=== PATIENT | female | born 1940 | race Caucasian/White ===

== ENCOUNTER 2016-10-31 10:39 | Inpatient (IN) | payer MEDICARE, OTHER ==
[2016-10-31] MEDS ORDERED: ASPIRIN 81 MG TABLET, CHEWABLE PO ONE (10:51)
[2016-10-31] MEDS ORDERED: LEVOFLOXACIN 500 MG/D5W RTU 100 ML IV ONE (11:39)
[2016-10-31 12:14] LABS: ABSOLUTE EOSINOPHILS # (AUTO) 0.2 10^3/uL (0.0-0.6); ABSOLUTE LYMPHOCYTES (AUTO) 0.8 10^3/uL (0.5-4.7); ABSOLUTE MONOCYTES (AUTO) 0.7 10^3/uL (0.1-1.4); ABSOLUTE NEUT (AUTO) 4.4 10^3/uL (1.7-8.2); BASOPHILS % (AUTO) 0.5 % (0-2); EOSINOPHILS % (AUTO) 2.9 % (0-6); HEMATOCRIT 36.6 % (36.0-47.0); HEMOGLOBIN 11.9 g/dL (12.0-15.5); HGB HCT DIFFERENCE -0.9; LYMPHOCYTES % (AUTO) 13.3 % (13-45); MEAN CORPUSCULAR HEMOGLOBIN 29.9 pg (27.0-33.4); MEAN CORPUSCULAR HGB CONC 32.4 g/dL (32.0-36.0); MEAN CORPUSCULAR VOLUME 92 fl (80-97); MONOCYTES % (AUTO) 11.6 % (3-13); RED BLOOD COUNT 3.97 10^6/uL (3.72-5.28); RED CELL DISTRIBUTION WIDTH 17.1 % (11.5-14.0); SEGMENTED NEUTROPHILS % (AUTO) 71.7 % (42-78); WHITE BLOOD COUNT 6.2 10^3/uL (4.0-10.5)
[2016-10-31 12:21] LABS: VENOUS BLOOD BASE EXCESS 3.5 mmol/L; VENOUS BLOOD HCO3 33.9 mmol/L (20-32); VENOUS BLOOD PH 7.26 (7.30-7.42)
[2016-10-31 12:22] LABS: VENOUS BLOOD PCO2 76.7 mmHg (35-63)
[2016-10-31 12:32] LABS: ALANINE AMINOTRANSFERASE 30 U/L (9-52); ALBUMIN 4.2 g/dL (3.5-5.0); ALKALINE PHOSPHATASE 41 U/L (38-126); ANION GAP 10 (5-19); ASPARTATE AMINO TRANSFERASE 28 U/L (14-36); BILIRUBIN,DIRECT 0.3 mg/dL (0.0-0.4); BILIRUBIN,TOTAL 0.4 mg/dL (0.2-1.3); BLOOD UREA NITROGEN 52 mg/dL (7-20); CALCIUM 9.1 mg/dL (8.4-10.2); CARBON DIOXIDE 33 mmol/L (22-30); CHLORIDE 95 mmol/L (98-107); CREATINE KINASE 99 U/L (30-135); CREATININE RESULT 1.61 mg/dL (0.52-1.25); GLUCOSE 227 mg/dL (75-110); LIPASE 468.2 U/L (23-300); MAGNESIUM 1.6 mg/dL (1.6-2.3); POTASSIUM 5.5 mmol/L (3.6-5.0); SODIUM 138.2 mmol/L (137-145); TOTAL PROTEIN 7.1 g/dL (6.3-8.2)
[2016-10-31 12:43] LABS: CREATINE KINASE MB 1.8 ng/mL (<4.55); TROPONIN I 0.013 ng/mL
[2016-10-31 13:05] LABS: APPEARANCE,URINE CLEAR; BILIRUBIN,URINE NEGATIVE (NEGATIVE); GLUCOSE, URINE NEGATIVE (NEGATIVE); KETONES,URINE NEGATIVE (NEGATIVE); LEUKOCYTE ESTERASE,URINE NEGATIVE (NEGATIVE); NITRITE,URINE NEGATIVE (NEGATIVE); PROTEIN,URINE NEGATIVE (NEGATIVE); URINE SPECIFIC GRAVITY 1.005; UROBILINOGEN,URINE NEGATIVE mg/dL (<2.0)
--- NOTE | 2016-10-31 13:11 | ER Document Report ---
ED General - General Chief Complaint: Shortness Of Breath Stated Complaint: SHORT OF BREATH - HPI Patient complains to provider of: shortness of breath Notes: Patient is coming in for shortness of breath. Patient family states patient will confuse this morning morning baseline. Patient was to have a history of dementia. Patient family states was breath ongoing for a week was seen by PCP was given Lasix for possible fluid overload. Patient otherwise is a history of COPD. Upon EMS arrival patient was found to be hypoxic and on transport had end -tidal CO2 greater than 60. Patient a longer smokes family denies any fevers denies any chills states patient has had a cough for quite some time. Patient is alert able states she does not have any chest pain abdominal pain at this time. - Related Data Allergies/Adverse Reactions: codeine [Codeine] Allergy (Verified 02/28/14 09:25) ABD PAIN erythromycin base [Erythromycin Base] Allergy (Verified 02/28/14 09:25) UNKNOWN morphine [Morphine] Allergy (Verified 02/28/14 09:25) oxycodone [Oxycodone] Allergy (Verified 02/28/14 09:25) hydrocodone [Hydrocodone] Adverse Reaction (Verified 02/28/14 09:25) methadone [Methadone] Adverse Reaction (Verified 02/28/14 09:25) erythromycin Allergy (Uncoded 11/30/12 11:39) sick Past Medical History - Social History Smoking Status: Former Smoker Frequency of alcohol use: None Drug Abuse: None Family History: Reviewed & Not Pertinent - Past Medical History Cardiac Medical History: Reports: Hx Congestive Heart Failure, Hx Heart Attack - stress induced several years ago, Hx Hypercholesterolemia, Hx Hypertension Pulmonary Medical History: Reports: Hx COPD Denies: Hx Asthma, Hx Tuberculosis Neurological Medical History: Denies: Hx Cerebrovascular Accident, Hx Seizures Endocrine Medical History: Reports: Hx Diabetes Mellitus Type 1, Hx Diabetes Mellitus Type 2 GI Medical History: Reports: Hx Gastroesophageal Reflux Disease, Hx Hiatal Hernia. Denies: Hx Hepatitis, Hx Ulcer Musculoskeltal Medical History: Reports Hx Arthritis, Reports Hx Fibromyalgia, Reports Hx Musculoskeletal Deformity, Reports Hx Musculoskeletal Trauma - scoliosis Psychiatric Medical History: Reports: Hx Anxiety, Hx Dementia, Hx Depression Infectious Medical History: Denies: Hx Hepatitis Past Surgical History: Reports: Hx Cardiac Catheterization, Hx Cholecystectomy, Hx Hysterectomy, Hx Orthopedic Surgery - back sx. Denies: Hx Mastectomy, Hx Open Heart Surgery, Hx Pacemaker - Immunizations Hx Diphtheria, Pertussis, Tetanus Vaccination: Yes Hx Pneumococcal Vaccination: 04/04/10 Review of Systems - Review of Systems Constitutional: No symptoms reported EENT: No symptoms reported Cardiovascular: No symptoms reported Respiratory: Cough, Short of breath Gastrointestinal: No symptoms reported Genitourinary: No symptoms reported Female Genitourinary: No symptoms reported Musculoskeletal: No symptoms reported Skin: No symptoms reported Hematologic/Lymphatic: No symptoms reported Neurological/Psychological: No symptoms reported -: Yes All other systems reviewed and negative Physical Exam - Vital signs Vitals: Temp Pulse Resp BP Pulse Ox 97.9 F 82 19 123/68 96 10/31/16 10:52 10/31/16 10:52 10/31/16 10:52 10/31/16 10:52 10/31/16 10:52 Interpretation: Normal - General General appearance: Appears well, Alert - HEENT Head: Normocephalic, Atraumatic Eyes: Normal Pupils: PERRL - Respiratory Respiratory status: No respiratory distress Chest status: Nontender Breath sounds: Normal Chest palpation: Normal - Cardiovascular Rhythm: Regular Heart sounds: Normal auscultation Murmur: No - Abdominal Inspection: Normal Distension: No distension Bowel sounds: Normal Tenderness: Nontender Organomegaly: No organomegaly - Back Back: Normal, Nontender - Extremities General upper extremity: Normal inspection, Nontender, Normal color, Normal ROM , Normal temperature General lower extremity: Normal inspection, Nontender, Normal color, Normal ROM , Normal temperature, Normal weight bearing. No: Candy's sign - Neurological Neuro grossly intact: Yes [place] Coma Scale Eye Opening: Spontaneous Sharla Coma Scale Verbal: Oriented [place] Coma Scale Motor: Obeys Commands Sharla Coma Scale Total: 15 Speech: Normal Motor strength normal: LUE, RUE, LLE, RLE Sensory: Normal - Psychological Associated symptoms: Normal affect, Normal mood - Skin Skin Temperature: Warm Skin Moisture: Dry Skin Color: Normal Course - Re-evaluation Re-evalutation: 10/31/16 16:00 Patient's chest x-ray shows bibasilar infiltrates. Patient was started on Levaquin as the patient does not have any risk factors for hospital or healthcare acquired pneumonia. More likely community-acquired. Patient laboratory showed hypercapnia therefore patient was placed on BiPAP. Lab work also does show some renal insufficiency with elevation in potassium. Patient's case was referred to the hospitalist will admit patient for further evaluation. - Vital Signs Vital signs: Temp Pulse Resp BP Pulse Ox 98.1 F 82 18 126/51 H 95 10/31/16 14:01 10/31/16 10:52 10/31/16 14:01 10/31/16 14:01 10/31/16 14:01 - Laboratory Result Diagrams: 10/31/16 11:25 10/31/16 11:50 Laboratory results interpreted by me: 10/31/16 10/31/16 10/31/16 11:25 11:25 11:50 Hgb 11.9 L RDW 17.1 H VBG pH 7.26 L VBG pCO2 76.7 H* VBG HCO3 33.9 H Potassium 5.5 H Chloride 95 L Carbon Dioxide 33 H BUN 52 H Creatinine 1.61 H Est GFR ( Amer) 38 L Est GFR (Non-Af Amer) 31 L Glucose 227 H Lipase 468.2 H Critical Care Note - Critical Care Note Total time excluding time spent on procedures (mins): 35 Comments: Patient with hypoxia hypercapnia requiring management of BiPAP Discharge - Discharge Clinical Impression: bilateral basilar pneumonia, Renal insufficiency Respiratory failure with hypoxia and hypercapnia Qualifiers: Chronicity: acute Qualified Code(s): J96.01 - Acute respiratory failure with hypoxia Dementia Qualifiers: Dementia type: unspecified type Dementia behavioral disturbance: without behavioral disturbance Qualified Code(s): F03.90 - Unspecified dementia without behavioral disturbance Admitting Provider: Hospitalist - [facility] Admitted: [facility]
[2016-10-31 13:18] LABS: URINE BARBITURATES SCREEN NEGATIVE; URINE METHADONE SCREEN NEGATIVE; URINE OPIATES LOW NEGATIVE; URINE PHENCYCLIDINE SCREEN NEGATIVE
[2016-10-31] MEDS ORDERED: ONDANSETRON 4 MG TAB.RAPDIS PO PRN (14:03)
[2016-10-31] MEDS ORDERED: ACETAMINOPHEN 325 MG TABLET PO PRN (14:03)
[2016-10-31] MEDS ORDERED: ONDANSETRON HCL INJ/PF 4 MG/2 ML SDV IV PRN (14:03)
[2016-10-31] MEDS ORDERED: IPRATROPIUM/ALBUTEROL 0.5-2.5 MG/3 ML AMPUL NEB PRN (14:03)
[2016-10-31] MEDS ORDERED: DEXTROSE 50%-WATER 25 GM/50 ML DISP.SYRIN IV PRN ×2 (14:09)
[2016-10-31] MEDS ORDERED: DEXTROSE 40% GEL 15 GM TUBE PO PRN ×2 (14:09)
[2016-10-31] MEDS ORDERED: GLUCAGON,HUMAN RECOMB 1 MG INJ IM PRN (14:09)
--- NOTE | 2016-10-31 14:21 | PDOC H&P ---
History of Present Illness Admission Date/PCP: 10/31/16 13:42 PEREZ GALVAN MD Patient complains of: Shortness of breath History of Present Illness: LARISA DOWELL is a 76 year old female who has a history of congestive heart failure who was seen by her primary care doctor on Wednesday and her Lasix dose was increased because of shortness of breath and worsening lower extremity edema. Since that time the patient has had improvement in her swelling however has had worsening of her shortness of breath and now has developed a productive cough. The patient has difficulty giving any history given her dementia. Patient presented and was found to be in acute respiratory distress and required BiPAP placement. Chest x-ray shows her to have pneumonia bilaterally. Patient denies chest pain and does have a history of just heart failure. The patient has not had any chest pain. Past Medical History Cardiac Medical History: Reports: Congestive Heart Failure, Myocardial Infarction - stress induced several years ago, Hyperlipidema, Hypertension Pulmonary Medical History: Reports: Chronic Obstructive Pulmonary Disease (COPD) Denies: Asthma, Tuberculosis Neurological Medical History: Denies: Seizures Endocrine Medical History: Reports: Diabetes Mellitus Type 2, Hypothyroidism Malignancy Medical History: Reports: None GI Medical History: Reports: Gastroesophageal Reflux Disease, Hiatal Hernia Musculoskeltal Medical History: Reports: Arthritis, Fibromyalgia Skin Medical History: Reports: None Psychiatric Medical History: Reports: Dementia, Depression Hematology: Reports: Anemia - in past Denies: Sickle Cell Disease Infectious Medical History: Reports: None Past Surgical History Past Surgical History: Reports: Cardiac Catheterization, Cholecystectomy, Hysterectomy, Orthopedic Surgery - back sx Denies: Amputation, Mastectomy, Pacemaker Social History Information Source: Relative Lives with: Family Smoking Status: Former Smoker Frequency of Alcohol Use: None Hx Recreational Drug Use: No Drugs: None Hx Prescription Drug Abuse: No - Advance Directive Resuscitation Status: Full Code Family History Family History: Mother at a young age with diabetes. Father in his 60s. Health history is unknown. Parental Family History Reviewed: Yes Children Family History Reviewed: No Sibling(s) Family History Reviewed.: No Medication/Allergy Home Medications: Digoxin [Lanoxin 0.125 mg Tablet] 0.125 mg PO QAM 07/13/11 Folic Acid [Folvite 1 mg Tablet] 2 mg PO QAM 07/13/11 Nitroglycerin [Nitrostat 0.4 mg (1/150 Gr) Tabs 25/Bottle] 60 gm SL PRN PRN 03/16 Prednisone [Deltasone 1 mg Tablet] 3 mg PO DAILY 07/13/11 Duloxetine HCl [Cymbalta 30 mg Capsule.dr] 60 mg PO BID 11/19/11 Cholecalciferol (Vitamin D3) [Vitamin D3 5000 unit Tablet] 50,000 unit PO Q7D Donepezil HCl [Aricept 5 mg Tablet] 10 mg PO QHS 04/24/12 Amlodipine Besylate [Norvasc 10 mg Tablet] 10 mg PO DAILY 11/13/12 Isosorbide Mononitrate [Isosorbide Mononitrate ER] 30 mg PO QAM 11/13/12 Labetalol HCl [Trandate] 100 mg PO BID 11/13/12 Levothyroxine Sodium [Synthroid 0.15 mg Tablet] 150 mcg PO DAILY 11/13/12 Valsartan [Diovan 160 mg Tablet] 320 mg PO DAILY 11/13/12 Cyclosporine 0.05% Oph Emulsio [Restasis 0.05% Oph Emulsion Pf 0.4 ml] 1 drop BTH_EYE Q12H 11/30/12 Fluticasone/Salmeterol [Advair 250-50 Diskus 28 dose] 1 inh IH Q12H 11/30/12 Cyanocobalamin (Vitamin B-12) [Vitamin B-12] 1,000 mcg PO DAILY 02/28/14 Acetaminophen [Tylenol 325 mg Tablet] 650 mg PO Q4HP PRN #60 tablet 03/09/14 Atorvastatin Calcium [Lipitor 20 mg Tablet] 20 mg PO QHS #0 tablet 03/09/14 B.ani/L.aci/L.facundo/L.plan/L.edmond [Probiotic Formula Capsule] 1 cap PO BID #60 capsule 03/09/14 Cholestyramine/Aspartame [Questran Light 4 gm Packet] 4 gm PO TID #90 packet 11/15 Diphenoxylate HCl/Atrop Sulf [Lomotil 2.5 mg Tablet] 1 tab PO TIDP PRN #30 tablet 03/09/14 Gemfibrozil [Lopid 600 mg Tablet] 600 mg PO BID #60 tablet 03/09/14 Hydralazine HCl [Apresoline 50 mg Tablet] 50 mg PO Q8 #90 tablet 03/09/14 Insulin Glargine,Hum.rec.anlog [Lantus Insulin 100 Unit/mL] 20 unit SUBCUT DAILY #1 insuln.pen 03/09/14 Insulin Lispro [Humalog Insulin (Lispro) 100 unit/mL] 0 unit SUBCUT AC #0 unit 03/09/14 Nystatin [Mycostatin Topical Powder 15 gm] 1 applic TP TID #0 bottle 03/09/14 Ondansetron HCl [Zofran 4 mg Tablet] 1 tab PO Q6HP PRN #20 tablet 03/09/14 Potassium Chloride [Klor-Con 10 Meq Tablet.sa] 10 meq PO DAILY #30 tablet.sa 11/15 Sodium Bicarbonate [Sodium Bicarbonate 650 mg Tablet] 650 mg PO DAILY #30 tablet 03/09/14 Allergies/Adverse Reactions: codeine [Codeine] Allergy (Verified 02/28/14 09:25) ABD PAIN erythromycin base [Erythromycin Base] Allergy (Verified 02/28/14 09:25) UNKNOWN morphine [Morphine] Allergy (Verified 02/28/14 09:25) oxycodone [Oxycodone] Allergy (Verified 02/28/14 09:25) hydrocodone [Hydrocodone] Adverse Reaction (Verified 02/28/14 09:25) methadone [Methadone] Adverse Reaction (Verified 02/28/14 09:25) erythromycin Allergy (Uncoded 11/30/12 11:39) sick Review of Systems ROS unobtainable: Due to mental status Physical Exam Vital Signs: Temp Pulse Resp BP Pulse Ox 98.1 F 82 18 126/51 H 95 10/31/16 14:01 10/31/16 10:52 10/31/16 14:01 10/31/16 14:01 10/31/16 14:01 General appearance: PRESENT: mild distress Head exam: PRESENT: atraumatic, normocephalic Eye exam: PRESENT: conjunctiva pink, EOMI, PERRLA. ABSENT: scleral icterus Ear exam: PRESENT: normal external ear exam Mouth exam: PRESENT: moist, tongue midline Neck exam: ABSENT: carotid bruit, JVD, lymphadenopathy, thyromegaly Respiratory exam: PRESENT: decreased breath sounds - Decreased breath sounds in the bases.. ABSENT: rales, rhonchi, wheezes Cardiovascular exam: PRESENT: RRR. ABSENT: diastolic murmur, rubs, systolic murmur Pulses: PRESENT: normal dorsalis pedis pul Vascular exam: PRESENT: normal capillary refill GI/Abdominal exam: PRESENT: normal bowel sounds, soft. ABSENT: distended, guarding, mass, organolmegaly, rebound, tenderness Rectal exam: PRESENT: deferred Extremities exam: ABSENT: calf tenderness, clubbing, pedal edema Neurological exam: PRESENT: awake, oriented to person, oriented to place, CN II- XII grossly intact. ABSENT: oriented to time, oriented to situation, motor sensory deficit Psychiatric exam: PRESENT: flat affect Skin exam: PRESENT: dry, intact, warm. ABSENT: cyanosis, rash Results Impressions: Chest X-Ray 10/31/16 10:52 IMPRESSION: Bibasilar infiltrates/volume loss. Assessment & Plan - Diagnosis (1) Respiratory failure with hypoxia and hypercapnia Qualifiers: Chronicity: acute Qualified Code(s): J96.01 - Acute respiratory failure with hypoxia; J96.02 - Acute respiratory failure with hypercapnia Is this a current diagnosis for this admission?: YesPlan: The patient has a history of COPD and now has pneumonia. Patient has required BiPAP. We'll continue with the BiPAP and nebulizers. (2) Pneumonia Is this a current diagnosis for this admission?: YesPlan: Patient has community-acquired pneumonia most likely representing gram-positive cocci. We'll cover with Levaquin IV. (3) Coronary artery disease Is this a current diagnosis for this admission?: YesPlan: Denies any chest pain. (4) Hypertension Is this a current diagnosis for this admission?: YesPlan: We'll continue with her oral antihypertensives. (5) Diabetes mellitus Is this a current diagnosis for this admission?: YesPlan: Continue with Lantus and sliding scale insulin. (6) Hypothyroidism Is this a current diagnosis for this admission?: YesPlan: Continue with Synthroid. (7) COPD (chronic obstructive pulmonary disease) Is this a current diagnosis for this admission?: YesPlan: We'll continue BiPAP and nebulizers. (8) Congestive heart failure Is this a current diagnosis for this admission?: YesPlan: Do not have a recent echo however by the family's description sounds this is probably diastolic dysfunction. We'll hold her Lasix as she is dehydrated with acute renal failure currently. (9) Dementia Qualifiers: Dementia type: unspecified type Dementia behavioral disturbance: without behavioral disturbance Qualified Code(s): F03.90 - Unspecified dementia without behavioral disturbance Is this a current diagnosis for this admission?: YesPlan: We'll continue with Aricept. (10) Pancreatitis Is this a current diagnosis for this admission?: YesPlan: Patient has abnormal lipase but denies abdominal pain. (11) Renal insufficiency Is this a current diagnosis for this admission?: YesPlan: Patient has acute on chronic renal failure. We'll hold the Lasix and give IV fluids cautiously. - Time Time Spent: 50 to 70 Minutes - Inpatient Certification Medical Necessity: Need For IV Fluids, Need for IV Antibiotics - Plan Summary Plan Summary: We'll make a full admission as I anticipate this will require greater than a two midnight hospital stay because of her need for IV fluids, IV antibiotics and BiPAP.
[2016-10-31] MEDS ORDERED: ENOXAPARIN SODIUM INJ 30 MG/0.3 ML DISP.SYRIN SUBCUT ONE ×2 (15:00→20:45)
[2016-10-31 15:48] LABS: CREATINE KINASE MB 1.42 ng/mL (<4.55)
[2016-10-31 15:52] LABS: TROPONIN I < 0.012 ng/mL
[2016-10-31] MEDS ORDERED: ALBUTEROL SULFATE HFA (90 MCG/PUFF) 200 PUFF/8.5 GM MDI IH PRN (16:40)
[2016-10-31] MEDS ORDERED: TRAMADOL HCL 50 MG TABLET PO PRN (16:40)
[2016-10-31] MEDS ORDERED: LEFLUNOMIDE 10 MG PO SCH (18:00)
[2016-10-31] MEDS ORDERED: (PENDING PHARMACY ID) (Fenofibrate [Fenofibrate] 160 MG) PO SCH (18:00)
[2016-10-31] MEDS: LANSOPRAZOLE 30 MG TAB.RAP.DR PO SCH (20:29)
[2016-10-31] MEDS: POTASSIUM CHLORIDE 10 MEQ TABLET.SA PO SCH (20:29)
[2016-10-31] MEDS: DONEPEZIL HCL 5 MG TABLET PO SCH (20:29)
[2016-10-31] MEDS: CYANOCOBALAMIN (VITAMIN B-12) 1,000 MCG TABLET PO SCH (20:30)
[2016-10-31] MEDS: LOSARTAN POTASSIUM 50 MG TABLET PO SCH (20:32)
[2016-10-31] MEDS: FAMOTIDINE 20 MG TABLET PO SCH (21:16)
[2016-10-31] MEDS: PREGABALIN 75 MG CAPSULE PO SCH (21:16)
[2016-10-31] MEDS: ATORVASTATIN CALCIUM 20 MG TABLET PO SCH (21:17)
[2016-10-31] MEDS: MONTELUKAST SODIUM 10 MG TABLET PO SCH (21:17)
[2016-10-31] MEDS: DULOXETINE HCL 30 MG CAPSULE.DR PO SCH (21:17)
[2016-10-31] MEDS: MIRTAZAPINE 15 MG TABLET PO SCH (21:18)
[2016-10-31] MEDS: NORMAL SALINE 1000 ML 1,000 ML IV PRN (21:19)
[2016-10-31] MEDS ORDERED: FLUTICASONE/SALMETEROL DISKUS 100-50 MCG/DOSE IH ONE (21:24)
[2016-10-31 21:26] LABS: CREATINE KINASE MB 1.26 ng/mL (<4.55)
[2016-10-31 21:28] LABS: TROPONIN I < 0.012 ng/mL
[2016-10-31] MEDS: FLUTICASONE/SALMETEROL DISKUS 100-50 MCG/DOSE IH SCH (23:15)
[2016-11-01 03:27] LABS: HEMATOCRIT 38.2 % (36.0-47.0); HEMOGLOBIN 12.5 g/dL (12.0-15.5); HGB HCT DIFFERENCE -0.7; MEAN CORPUSCULAR HGB CONC 32.7 g/dL (32.0-36.0); MEAN CORPUSCULAR VOLUME 92 fl (80-97); RED BLOOD COUNT 4.17 10^6/uL (3.72-5.28); RED CELL DISTRIBUTION WIDTH 17.7 % (11.5-14.0); WHITE BLOOD COUNT 7.4 10^3/uL (4.0-10.5)
[2016-11-01 03:28] LABS: ANION GAP 11 (5-19); BLOOD UREA NITROGEN 47 mg/dL (7-20); CALCIUM 9.2 mg/dL (8.4-10.2); CARBON DIOXIDE 36 mmol/L (22-30); CHLORIDE 98 mmol/L (98-107); CREATINE KINASE 62 U/L (30-135); CREATININE RESULT 1.32 mg/dL (0.52-1.25); GLUCOSE 109 mg/dL (75-110); SODIUM 145.3 mmol/L (137-145)
[2016-11-01 03:59] LABS: CREATINE KINASE MB 0.93 ng/mL (<4.55)
[2016-11-01 04:19] LABS: TROPONIN I < 0.012 ng/mL
[2016-11-01 05:03] LABS: POTASSIUM 4.9 mmol/L (3.6-5.0)
[2016-11-01] MEDS: NORMAL SALINE 1000 ML 1,000 ML IV PRN ×2 (07:58→16:07)
[2016-11-01] MEDS: ENOXAPARIN SODIUM INJ 30 MG/0.3 ML DISP.SYRIN SUBCUT SCH (08:00)
[2016-11-01] MEDS ORDERED: ENOXAPARIN SODIUM INJ 40 MG/0.4 ML DISP.SYRIN SUBCUT SCH (08:00)
[2016-11-01] MEDS ORDERED: LEVOFLOXACIN 750 MG/D5W RTU 150 ML IV SCH (10:00)
--- NOTE | 2016-11-01 10:13 | EKG REPORT ---
SEVERITY:- ABNORMAL ECG - SINUS RHYTHM MULTIPLE ATRIAL PREMATURE COMPLEXES CONSIDER ANTERIOR INFARCT : Confirmed by: Ginger Santos 01-Nov-2016 10:12:45
[2016-11-01] MEDS: POTASSIUM CHLORIDE 10 MEQ TABLET.SA PO SCH ×2 (11:02→16:54)
[2016-11-01] MEDS: SODIUM BICARBONATE 650 MG TABLET PO SCH (11:02)
[2016-11-01] MEDS: LEVOTHYROXINE SODIUM 0.1 MG TABLET PO SCH (11:03)
[2016-11-01] MEDS: AMLODIPINE BESYLATE 10 MG TABLET PO SCH (11:03)
[2016-11-01] MEDS: CHOLECALCIFEROL (D3) 1,000 UNIT TABLET PO SCH (11:03)
[2016-11-01] MEDS: ISOSORBIDE MONONITRATE 30 MG TAB.ER.24H PO SCH (11:04)
[2016-11-01] MEDS: FAMOTIDINE 20 MG TABLET PO SCH ×2 (11:04→22:43)
[2016-11-01] MEDS: DULOXETINE HCL 30 MG CAPSULE.DR PO SCH ×2 (11:04→22:43)
[2016-11-01] MEDS: FOLIC ACID 1 MG TABLET PO SCH (11:05)
[2016-11-01] MEDS: PREGABALIN 75 MG CAPSULE PO SCH ×2 (11:05→22:42)
[2016-11-01] MEDS: FLUTICASONE NASAL SPRAY 50 MCG/SPRY 120 SPRAY/16 GM NASL SCH (11:06)
[2016-11-01] MEDS: FLUTICASONE/SALMETEROL DISKUS 100-50 MCG/DOSE IH SCH ×2 (11:06→22:46)
[2016-11-01] MEDS: INSULIN GLARGINE,HUM.REC.ANLOG 300 UNIT/3 ML INSULN.PEN SUBCUT SCH (11:30)
[2016-11-01] MEDS: PREDNISONE 1 MG TABLET PO SCH (11:30)
--- NOTE | 2016-11-01 11:47 | PDOC PROGRESS REPORT ---
Subjective Progress Note for:: 11/01/16 Subjective:: Patient is less confused today. Physical Exam Vital Signs: Temp Pulse Resp BP Pulse Ox 98.1 F 83 20 144/54 H 98 11/01/16 08:09 11/01/16 08:09 11/01/16 08:09 11/01/16 08:09 11/01/16 08:09 Intake & Output 10/31/16 11/01/16 11/02/16 06:59 06:59 06:59 Intake Total 1707 Output Total 300 Balance 1407 Weight 87.4 kg General appearance: PRESENT: no acute distress Eye exam: PRESENT: conjunctiva pink. ABSENT: scleral icterus Mouth exam: PRESENT: moist, tongue midline Neck exam: ABSENT: JVD Respiratory exam: PRESENT: rhonchi - Coarse rhonchi bilaterally.. ABSENT: rales , wheezes Cardiovascular exam: PRESENT: RRR. ABSENT: diastolic murmur, rubs, systolic murmur GI/Abdominal exam: PRESENT: normal bowel sounds, soft. ABSENT: distended, guarding, mass, organolmegaly, rebound, tenderness Extremities exam: ABSENT: calf tenderness, clubbing, pedal edema Neurological exam: PRESENT: alert, awake, oriented to person, oriented to place , CN II-XII grossly intact. ABSENT: oriented to time, oriented to situation, motor sensory deficit Psychiatric exam: PRESENT: flat affect Skin exam: PRESENT: dry, intact, warm. ABSENT: cyanosis, rash Results Laboratory Results: 11/01/16 02:55 11/01/16 02:55 11/01/16 11/01/16 02:55 02:55 WBC 7.4 RBC 4.17 Hgb 12.5 Hct 38.2 MCV 92 MCH 30.0 MCHC 32.7 RDW 17.7 H Plt Count 173 Sodium 145.3 H Potassium 4.9 Chloride 98 Carbon Dioxide 36 H Anion Gap 11 BUN 47 H Creatinine 1.32 H Est GFR ( Amer) 47 L Est GFR (Non-Af Amer) 39 L Glucose 109 Calcium 9.2 10/31/16 10/31/16 10/31/16 14:50 14:50 20:34 Creatine Kinase 83 70 CK-MB (CK-2) 1.42 Troponin I < 0.012 04/29/17 04/30/17 04/30/17 20:34 02:55 02:55 Creatine Kinase 62 CK-MB (CK-2) 1.26 0.93 Troponin I < 0.012 < 0.012 Impressions: Chest X-Ray 10/31/16 10:52 IMPRESSION: Bibasilar infiltrates/volume loss. Assessment & Plan - Diagnosis (1) Respiratory failure with hypoxia and hypercapnia Qualifiers: Chronicity: acute Qualified Code(s): J96.01 - Acute respiratory failure with hypoxia; J96.02 - Acute respiratory failure with hypercapnia Is this a current diagnosis for this admission?: YesPlan: The patient has a history of COPD and now has pneumonia. Patient has required BiPAP. She is currently stable off of BiPAP at this time. We'll continue with the BiPAP as needed and nebulizers. (2) Pneumonia Is this a current diagnosis for this admission?: YesPlan: Patient has community-acquired pneumonia most likely representing gram-positive cocci. We'll cover with Levaquin IV. (3) Coronary artery disease Is this a current diagnosis for this admission?: YesPlan: Denies any chest pain. (4) Hypertension Is this a current diagnosis for this admission?: YesPlan: We'll continue with her oral antihypertensives. (5) Diabetes mellitus Is this a current diagnosis for this admission?: YesPlan: Continue with Lantus and sliding scale insulin. (6) Hypothyroidism Is this a current diagnosis for this admission?: YesPlan: Continue with Synthroid. (7) COPD (chronic obstructive pulmonary disease) Is this a current diagnosis for this admission?: YesPlan: We'll continue BiPAP and nebulizers. (8) Congestive heart failure Is this a current diagnosis for this admission?: YesPlan: I Do not have a recent echo however by the family's description sounds this is probably diastolic dysfunction. We'll hold her Lasix as she is dehydrated with acute renal failure currently. (9) Dementia Qualifiers: Dementia type: unspecified type Dementia behavioral disturbance: without behavioral disturbance Qualified Code(s): F03.90 - Unspecified dementia without behavioral disturbance Is this a current diagnosis for this admission?: YesPlan: We'll continue with Aricept. (10) Pancreatitis Is this a current diagnosis for this admission?: YesPlan: Patient has abnormal lipase but denies abdominal pain. (11) Renal insufficiency Is this a current diagnosis for this admission?: YesPlan: Patient has acute on chronic renal failure. We'll hold the Lasix and give IV fluids cautiously. - Time Time Spent with patient: 25-34 minutes - Inpatient Certification Medical Necessity: Need For IV Fluids, Need for IV Antibiotics
[2016-11-01] MEDS: INSULIN LISPRO 100 UNIT/ML 3 ML VIAL SUBCUT PRN ×3 (11:51→22:46)
[2016-11-01] MEDS ORDERED: MEMANTINE HCL 7 MG PO SCH (12:00)
[2016-11-01] MEDS ORDERED: NAMENDA 7 MG PO ONE (16:00)
[2016-11-01] MEDS: LOSARTAN POTASSIUM 50 MG TABLET PO SCH (16:54)
[2016-11-01] MEDS: DONEPEZIL HCL 5 MG TABLET PO SCH (16:54)
[2016-11-01] MEDS: LANSOPRAZOLE 30 MG TAB.RAP.DR PO SCH (16:56)
[2016-11-01] MEDS: CYANOCOBALAMIN (VITAMIN B-12) 1,000 MCG TABLET PO SCH (16:56)
[2016-11-01] MEDS ORDERED: FENOFIBRATE NANOCRYSTALLIZED 145 MG TABLET PO SCH (18:00)
[2016-11-01] MEDS ORDERED: ARAVA PO SCH (18:00)
[2016-11-01] MEDS: MIRTAZAPINE 15 MG TABLET PO SCH (22:42)
[2016-11-01] MEDS: MONTELUKAST SODIUM 10 MG TABLET PO SCH (22:42)
[2016-11-01] MEDS: ATORVASTATIN CALCIUM 20 MG TABLET PO SCH (22:43)
[2016-11-02 06:16] LABS: ABSOLUTE EOSINOPHILS # (AUTO) 0.1 10^3/uL (0.0-0.6); ABSOLUTE LYMPHOCYTES (AUTO) 0.8 10^3/uL (0.5-4.7); ABSOLUTE MONOCYTES (AUTO) 0.4 10^3/uL (0.1-1.4); BASOPHILS % (AUTO) 0.7 % (0-2); EOSINOPHILS % (AUTO) 2.9 % (0-6); HEMATOCRIT 34.2 % (36.0-47.0); HEMOGLOBIN 11.1 g/dL (12.0-15.5); HGB HCT DIFFERENCE -0.9; LYMPHOCYTES % (AUTO) 19.4 % (13-45); MEAN CORPUSCULAR HGB CONC 32.5 g/dL (32.0-36.0); MEAN CORPUSCULAR VOLUME 92 fl (80-97); MONOCYTES % (AUTO) 9.3 % (3-13); RED BLOOD COUNT 3.71 10^6/uL (3.72-5.28); RED CELL DISTRIBUTION WIDTH 17.2 % (11.5-14.0); SEGMENTED NEUTROPHILS % (AUTO) 67.7 % (42-78); WHITE BLOOD COUNT 4.4 10^3/uL (4.0-10.5)
[2016-11-02 06:38] LABS: ANION GAP 8 (5-19); BLOOD UREA NITROGEN 32 mg/dL (7-20); CALCIUM 8.6 mg/dL (8.4-10.2); CARBON DIOXIDE 32 mmol/L (22-30); CHLORIDE 105 mmol/L (98-107); CREATININE RESULT 1.05 mg/dL (0.52-1.25); GLUCOSE 123 mg/dL (75-110); POTASSIUM 4.8 mmol/L (3.6-5.0); SODIUM 145.4 mmol/L (137-145)
[2016-11-02] MEDS: ENOXAPARIN SODIUM INJ 30 MG/0.3 ML DISP.SYRIN SUBCUT SCH (07:41)
[2016-11-02] MEDS: FLUTICASONE/SALMETEROL DISKUS 100-50 MCG/DOSE IH SCH (09:25)
[2016-11-02] MEDS: FLUTICASONE NASAL SPRAY 50 MCG/SPRY 120 SPRAY/16 GM NASL SCH (09:27)
[2016-11-02] MEDS: PREDNISONE 1 MG TABLET PO SCH (09:27)
[2016-11-02] MEDS: CHOLECALCIFEROL (D3) 1,000 UNIT TABLET PO SCH (09:29)
[2016-11-02] MEDS: SODIUM BICARBONATE 650 MG TABLET PO SCH (09:31)
[2016-11-02] MEDS: FAMOTIDINE 20 MG TABLET PO SCH (09:31)
[2016-11-02] MEDS: FOLIC ACID 1 MG TABLET PO SCH (09:31)
[2016-11-02] MEDS: AMLODIPINE BESYLATE 10 MG TABLET PO SCH (09:32)
[2016-11-02] MEDS: ISOSORBIDE MONONITRATE 30 MG TAB.ER.24H PO SCH (09:32)
[2016-11-02] MEDS: PREGABALIN 75 MG CAPSULE PO SCH (09:33)
[2016-11-02] MEDS: DULOXETINE HCL 30 MG CAPSULE.DR PO SCH (09:33)
[2016-11-02] MEDS: POTASSIUM CHLORIDE 10 MEQ TABLET.SA PO SCH (09:34)
[2016-11-02] MEDS: INSULIN GLARGINE,HUM.REC.ANLOG 300 UNIT/3 ML INSULN.PEN SUBCUT SCH (09:35)
[2016-11-02] MEDS ORDERED: LEVOFLOXACIN 750 MG/D5W RTU 750 MG/150 ML RTUPB IV SCH (10:00)
[2016-11-02] MEDS: LEVOTHYROXINE SODIUM 0.1 MG TABLET PO SCH (10:11)
[2016-11-02] MEDS ORDERED: NAMENDA 7 MG PO SCH (12:00)
[2016-11-02 13:19] VITALS: BP 136/52
--- NOTE | 2016-11-02 14:09 | PDOC DISCHARGE SUMMARY ---
General - Admit/Disc Date/PCP Admission Date/Primary Care Provider: 10/31/16 14:04 PEREZ GALVAN MD Discharge Date: 11/02/16 - Discharge Diagnosis (1) Respiratory failure with hypoxia and hypercapnia Is this a current diagnosis for this admission?: YesSummary: Secondary to pneumonia. (2) Pneumonia Is this a current diagnosis for this admission?: YesSummary: With negative cultures. Sent home with oral Levaquin. (3) Coronary artery disease Is this a current diagnosis for this admission?: Yes (4) Hypertension Is this a current diagnosis for this admission?: Yes (5) Diabetes mellitus Is this a current diagnosis for this admission?: Yes (6) Hypothyroidism Is this a current diagnosis for this admission?: Yes (7) COPD (chronic obstructive pulmonary disease) Is this a current diagnosis for this admission?: Yes (8) Congestive heart failure Is this a current diagnosis for this admission?: Yes (9) Dementia Is this a current diagnosis for this admission?: Yes (10) Pancreatitis Is this a current diagnosis for this admission?: YesSummary: Patient was asymptomatic but was found to have elevated lipase. (11) Renal insufficiency Is this a current diagnosis for this admission?: YesSummary: Patient presented with acute renal failure with creatinine of 1.6. Creatinine has returned to normal with IV fluids. - Additional Information Resuscitation Status: Full Code Discharge Diet: Cardiac, Diabetic Discharge Activity: Activity As Tolerated Home Medications: Albuterol Sulfate [Proair HFA Inhalation Aerosol 8.5 gm MDI] 1 puff IH Q6HP PRN 10/31/16 Amlodipine Besylate [Norvasc 10 mg Tablet] 10 mg PO DAILY 10/31/16 Atorvastatin Calcium [Lipitor 20 mg Tablet] 20 mg PO QHS 10/31/16 Cholecalciferol (Vitamin D3) [Vitamin D3 5000 unit Capsule] 5,000 unit PO DAILY 10/31/16 Cyanocobalamin (Vitamin B-12) [Vitamin B-12] 1,000 mcg PO QPM 10/31/16 Donepezil HCl [Aricept] 10 mg PO QPM 10/31/16 Duloxetine HCl [Cymbalta] 60 mg PO Q12 10/31/16 Fenofibrate 160 mg PO QPM 10/31/16 Fluticasone Propionate [Flonase Nasal Ihlen 50 Mcg/Ihlen 16 gm] 2 sprays NASL DAILY 10/31/16 Fluticasone/Salmeterol [Advair 100-50 Diskus 28 Dose] 1 inh IH Q12 10/31/16 Folic Acid [Folvite 1 mg Tablet] 2 mg PO DAILY 10/31/16 Furosemide [Lasix] 80 mg PO Q12 10/31/16 Insulin Glargine,Hum.rec.anlog [Lantus Solostar] 30 unit SQ DAILY 10/31/16 Insulin Glulisine [Apidra Insulin (Glulisine) 100 unit/mL] 0 unit SUBCUT .SLIDING SCALE 10/31/16 Irbesartan [Avapro] 300 mg PO QPM 10/31/16 Isosorbide Mononitrate [Imdur 30 mg Tablet.er] 30 mg PO DAILY 10/31/16 Leflunomide [Arava] 10 mg PO QPM 10/31/16 Levothyroxine Sodium [Synthroid 0.1 mg Tablet] 0.1 mg PO DAILY@1100 10/31/16 Memantine HCl [Namenda Xr] 7 mg PO NOON 10/31/16 Methotrexate Sodium [Methotrexate] 10 mg PO FR@1000 10/31/16 Mirtazapine [Remeron 15 mg Tablet] 30 mg PO QHS 10/31/16 Montelukast Sodium [Singulair 10 mg Tablet] 10 mg PO QHS 10/31/16 Omeprazole 40 mg PO QPM 10/31/16 Pioglitazone HCl [Actos 15 mg Tablet] 15 mg PO DAILY 10/31/16 Potassium Chloride [K-Tab ER] 20 meq PO BID 10/31/16 Prednisone [Deltasone 1 mg Tablet] 3 mg PO DAILY 10/31/16 Pregabalin [Lyrica] 150 mg PO Q12 10/31/16 Progesterone,Micronized [Progesterone] 100 mg PO QHS 10/31/16 Sodium Bicarbonate [Sodium Bicarbonate 650 mg Tablet] 650 mg PO DAILY 10/31/16 Tramadol HCl [Ultram 50 mg Tablet] 50 mg PO Q6HP PRN 10/31/16 Levofloxacin [Levaquin 750 mg Tablet] 750 mg PO DAILY #5 tablet 11/02/16 History of Present Illness History of Present Illness: LARISA DOWELL is a 76 year old female who has a history of congestive heart failure who was seen by her primary care doctor on Wednesday and her Lasix dose was increased because of shortness of breath and worsening lower extremity edema. Since that time the patient has had improvement in her swelling however has had worsening of her shortness of breath and now has developed a productive cough. The patient has difficulty giving any history given her dementia. Patient presented and was found to be in acute respiratory distress and required BiPAP placement. Chest x-ray shows her to have pneumonia bilaterally. Patient denies chest pain and does have a history of just heart failure. The patient has not had any chest pain. Hospital Course Hospital Course: 76-year-old female had worsening mental status and was found to have bilateral pneumonia. Patient was treated with IV Levaquin along with BiPAP initially. She also was noted to be dehydrated with acute renal failure. She was given IV antibiotics as well as IV fluids and she had improvement in her mental status. Patient was able to been doing well since then. She's taking oral well and her respiratory status is back to her baseline she is discharged home on a 5 day course of Levaquin. Her function has returned back to normal. The other medical problems were unchanged during this hospitalization. Physical Exam Vital Signs: Temp Pulse Resp BP Pulse Ox 97.9 F 64 16 136/52 H 100 11/02/16 11:41 11/02/16 11:41 11/02/16 11:41 11/02/16 11:41 11/02/16 11:41 Intake & Output 11/01/16 11/02/16 11/03/16 06:59 06:59 06:59 Intake Total 1707 4440 240 Output Total 300 100 Balance 1407 4340 240 Weight 87.4 kg 91.7 kg General appearance: PRESENT: no acute distress Eye exam: PRESENT: conjunctiva pink. ABSENT: scleral icterus Mouth exam: PRESENT: moist, tongue midline Neck exam: ABSENT: JVD Respiratory exam: PRESENT: clear to auscultation lolly. ABSENT: rales, rhonchi, wheezes Cardiovascular exam: PRESENT: RRR. ABSENT: diastolic murmur, rubs, systolic murmur GI/Abdominal exam: PRESENT: normal bowel sounds, soft. ABSENT: distended, guarding, mass, organolmegaly, rebound, tenderness Extremities exam: ABSENT: calf tenderness, clubbing, pedal edema Neurological exam: PRESENT: alert, awake, oriented to person, oriented to place , oriented to time, CN II-XII grossly intact. ABSENT: oriented to situation, motor sensory deficit Psychiatric exam: PRESENT: appropriate affect Skin exam: PRESENT: dry, intact, warm. ABSENT: cyanosis, rash Results Laboratory Results: 11/02/16 05:36 11/02/16 05:36 11/02/16 11/02/16 05:36 05:36 WBC 4.4 RBC 3.71 L Hgb 11.1 L Hct 34.2 L MCV 92 MCH 30.0 MCHC 32.5 RDW 17.2 H Plt Count 214 Seg Neutrophils % 67.7 Lymphocytes % 19.4 Monocytes % 9.3 Eosinophils % 2.9 Basophils % 0.7 Absolute Neutrophils 3.0 Absolute Lymphocytes 0.8 Absolute Monocytes 0.4 Absolute Eosinophils 0.1 Absolute Basophils 0.0 Sodium 145.4 H Potassium 4.8 Chloride 105 Carbon Dioxide 32 H Anion Gap 8 BUN 32 H Creatinine 1.05 Est GFR ( Amer) > 60 Est GFR (Non-Af Amer) 51 L Glucose 123 H Calcium 8.6 10/31/16 10/31/16 10/31/16 14:50 14:50 20:34 Creatine Kinase 83 70 CK-MB (CK-2) 1.42 Troponin I < 0.012 10/31/16 11/01/16 11/01/16 20:34 02:55 02:55 Creatine Kinase 62 CK-MB (CK-2) 1.26 0.93 Troponin I < 0.012 < 0.012 Impressions: Chest X-Ray 10/31/16 10:52 IMPRESSION: Bibasilar infiltrates/volume loss. Qualifiers PATEINT BEING DISCHARGED WITH ANY OF THE FOLLOWING DIAGNOSIS?: No Plan Discharge Plan: Patient is discharged home in stable condition. Follow primary care in 1-2 weeks. Time Spent: Greater than 30 Minutes
[2016-11-06] MEDS ORDERED: METHOTREXATE SODIUM 2.5 MG TABLET PO SCH (10:00)
== END 2016-11-02 15:19 | disposition home or self-care (01) | DRG 193 ==
LOC: ER 10:39 → UNDOADMIN 13:42 → EH 13:42 → 3W 17:38
PROVIDERS: ADMIT Internal Medicine; ATTEND Internal Medicine
DX: J18.9 Pneumonia, unspecified organism (principal); J96.01 Acute respiratory failure with hypoxia; J96.02 Acute respiratory failure with hypercapnia; K85.90 Acute pancreatitis without necrosis or infection, unspecified; J44.0 Chronic obstructive pulmonary disease with (acute) lower respiratory infection; N17.9 Acute kidney failure, unspecified; I13.0 Hypertensive heart and chronic kidney disease with heart failure and stage 1 through stage 4 chronic kidney disease, or unspecified chronic kidney disease; N18.9 Chronic kidney disease, unspecified; I50.9 Heart failure, unspecified; E78.5 Hyperlipidemia, unspecified; K21.9 Gastro-esophageal reflux disease without esophagitis; F03.90 Unspecified dementia, unspecified severity, without behavioral disturbance, psychotic disturbance, mood disturbance, and anxiety; I25.2 Old myocardial infarction; Z87.891 Personal history of nicotine dependence; Z79.4 Long term (current) use of insulin; Z79.899 Other long term (current) drug therapy
CPT/HCPCS: 36415; 71010; 80048; 80053; 80307; 81001; 82550; 82553; 82803; 82962; 83690; 83735; 83880; 84484; 85025; 85027; 87040; 93005; 93010; 96365; 99291; J1650; J1815; J1956; J3490; J7030; J7512

== ENCOUNTER → 2017-01-14 | Outpatient (CLI) | payer MEDICARE, OTHER ==
--- NOTE | 2017-01-15 09:27 | EEG PRO FEE REPORT ---
EEG INTERPRETATION PATIENT NAME: LARISA DOWELL ROOM#: ORDER#: [id number] DATE OF STUDY: 01/14/2017 : 1940 REFERRING MD: ROSLYN SALAS M.D. DIAGNOSIS: Amnesia, gait abnormalities REPORT The EEG is done with video and no seizure activity or abnormal movements are noted on the video. The background shows a lot of frontal eye fuel motion artifact, but the background is within normal limits for age which is 7-8 Hz mixed theta and alpha; medium amplitude. No focal slowing, amplitude asymmetry, or epileptiform discharges are seen. IMPRESSION Normal EEG with some excessive frontal motion artifact at times INTERPRETING PHYSICIAN: LAURE ANDERS M.D. /: MTEFFT TT: [id number] ID: [id number] /: [id number] TD: [id number] JOB: [id number] cc:Juan CROFT M.D. >
== END ==
LOC: NEURO 12:49
PROVIDERS: ATTEND Pediatrics
DX: R41.0 Disorientation, unspecified (principal); R26.89 Other abnormalities of gait and mobility; R41.3 Other amnesia
CPT/HCPCS: 95819

== ENCOUNTER 2017-10-23 17:33 | Emergency (ER) | payer MEDICARE, OTHER ==
--- NOTE | 2017-10-23 17:51 | ER Document Report ---
ED Medical Screen (RME) - General Mode of Arrival: Wheelchair Information source: Patient TRAVEL OUTSIDE OF THE [place] IN LAST 30 DAYS: No <TATIANA ALCARAZ - Last Filed: 10/23/17 17:43> <TORSTEN AGUAYO - Last Filed: 10/23/17 21:23> - General Chief Complaint: Altered Mental Status Stated Complaint: CONFUSION Time Seen by Provider: 10/23/17 17:42 Notes: 77 y.o female with PMHx of dementia presents to the ED with hallucinations with confusion. Relative at bedside states that she saw PCP on 10/20/17, who halved her BP dose and started on a new medication, Clonodine. Pt notes a cough and trouble breathing from time to time. Current sinus congestion is being treated with Z-pack and a nose spray. Relative states a hx of URI and dehydration causing her confusion. (TATIANA ALCARAZ) - Related Data Allergies/Adverse Reactions: codeine [Codeine] Allergy (Verified 10/23/17 17:50) ABD PAIN erythromycin base [Erythromycin Base] Allergy (Verified 10/23/17 17:50) UNKNOWN morphine [Morphine] Allergy (Verified 10/23/17 17:50) oxycodone [Oxycodone] Allergy (Verified 10/23/17 17:50) hydrocodone [Hydrocodone] Adverse Reaction (Verified 10/23/17 17:50) methadone [Methadone] Adverse Reaction (Verified 10/23/17 17:50) erythromycin Allergy (Uncoded 10/23/17 17:50) sick Past Medical History - General Information source: Patient, Relative - Social History Chew tobacco use (# tins/day): No Frequency of alcohol use: None Drug Abuse: None - Past Medical History Cardiac Medical History: Reports: Hx Congestive Heart Failure, Hx Heart Attack - stress induced several years ago, Hx Hypercholesterolemia, Hx Hypertension Pulmonary Medical History: Reports: Hx COPD Denies: Hx Asthma, Hx Tuberculosis Neurological Medical History: Denies: Hx Cerebrovascular Accident, Hx Seizures Endocrine Medical History: Reports: Hx Diabetes Mellitus Type 1, Hx Diabetes Mellitus Type 2, Hx Hypothyroidism GI Medical History: Reports: Hx Gastroesophageal Reflux Disease, Hx Hiatal Hernia. Denies: Hx Hepatitis, Hx Ulcer Musculoskeltal Medical History: Reports Hx Arthritis, Reports Hx Fibromyalgia, Reports Hx Musculoskeletal Deformity, Reports Hx Musculoskeletal Trauma - scoliosis Psychiatric Medical History: Reports: Hx Anxiety, Hx Dementia, Hx Depression Infectious Medical History: Denies: Hx Hepatitis Past Surgical History: Reports: Hx Cardiac Catheterization, Hx Cholecystectomy, Hx Hysterectomy, Hx Orthopedic Surgery - back sx. Denies: Hx Mastectomy, Hx Open Heart Surgery, Hx Pacemaker - Immunizations Hx Diphtheria, Pertussis, Tetanus Vaccination: Yes <TATIANA ALCARAZ - Last Filed: 10/23/17 17:43> Review of Systems - Review of Systems Constitutional: No symptoms reported EENT: Other - sinus congestion being treated Cardiovascular: No symptoms reported Respiratory: See HPI, Cough, Short of breath Gastrointestinal: No symptoms reported Genitourinary: No symptoms reported Female Genitourinary: No symptoms reported Musculoskeletal: No symptoms reported Skin: No symptoms reported Hematologic/Lymphatic: No symptoms reported Neurological/Psychological: See HPI, Confusion, Dementia, Hallucinations -: Yes All other systems reviewed and negative <TATIANA ALCARAZ - Last Filed: 10/23/17 17:43> Physical Exam <TATIANA ALCARAZ - Last Filed: 10/23/17 17:43> <TORSTEN AGUAYO - Last Filed: 10/23/17 21:23> - Vital signs Vitals: Temp Pulse Resp BP Pulse Ox 98.4 F 72 20 141/57 H 90 L 10/23/17 17:40 10/23/17 17:40 10/23/17 17:40 10/23/17 17:40 10/23/17 17:40 - Notes Notes: Physical Exam: General: Alert, oriented to person and place. HEENT: Normocephalic. Atraumatic. PERRLA. Extraocular movements intact. Subconjunctival hemorrhage RT eye. Neck: Supple. Respiratory: No respiratory distress. Crackles to LT lower lung. Heart: 1/6 systolic ejection murmur Abdominal: Normal Inspection. No distension. Extremities: Moves all four extremities. Neurological: Normal cognition. Normal speech. Oriented to person and place but no tot time, cannot give the year or the name of the president, avoids answering the question and gives excuses consistent with dementia. Psychological: Normal affect. Normal Mood. Skin: Warm. Dry. Normal color. (TATIANA ALCARAZ) Course - Laboratory Result Diagrams: 10/23/17 18:32 10/23/17 20:25 <TORSTEN AGUAYO - Last Filed: 10/23/17 21:23> - Vital Signs Vital signs: Temp Pulse Resp BP Pulse Ox 98.4 F 72 21 H 143/90 H 98 10/23/17 17:40 10/23/17 18:00 10/23/17 20:01 10/23/17 20:01 10/23/17 21:01 - Laboratory Laboratory results interpreted by me: 10/23/17 10/23/17 18:32 20:25 RBC 3.68 L Hgb 10.7 L Hct 32.6 L RDW 14.6 H Chloride 97 L Carbon Dioxide 37 H BUN 40 H Est GFR ( Amer) 51 L Est GFR (Non-Af Amer) 42 L Glucose 166 H Alkaline Phosphatase 35 L Doctor's Discharge <TATIANA ALCARAZ - Last Filed: 10/23/17 17:43> <TORSTEN AGUAYO - Last Filed: 10/23/17 21:23> - Discharge Clinical Impression: Medication adverse effect, Altered mental status, Essential hypertension Condition: Good Disposition: HOME, SELF-CARE Additional Instructions: Please discontinue the clonidine as well as the azithromycin. Please restart amlodipine 10 mg daily. Consider following up with your primary care doctor and requesting hydrochlorothiazide to manage your blood pressure in addition to the blood pressure medications that you already on. The remainder of your labs and chest x-ray are normal today. Please return to the emergency room immediately if you experience any concerning symptoms including high fevers, severe headache, chest pain, difficulty breathing, abdominal pain, slurred speech, numbness or weakness in your arms or legs, or any other symptom that concerns you. Referrals: PEREZ GALVAN MD [Primary Care Provider] - Follow up as needed Scribe Documentation - Scribe Written by Annemarie:: annemarie Mcelroy 10/23/17 [id number] acting as scribe for :: Alfonso <TATIANA ALCARAZ - Last Filed: 10/23/17 17:43>
[2017-10-23 18:40] LABS: ABSOLUTE BASOPHILS # (AUTO) 0.1 10^3/uL (0.0-0.2); ABSOLUTE EOSINOPHILS # (AUTO) 0.1 10^3/uL (0.0-0.6); ABSOLUTE LYMPHOCYTES (AUTO) 1.6 10^3/uL (0.5-4.7); ABSOLUTE MONOCYTES (AUTO) 0.8 10^3/uL (0.1-1.4); ABSOLUTE NEUT (AUTO) 4.3 10^3/uL (1.7-8.2); BASOPHILS % (AUTO) 1.2 % (0-2); EOSINOPHILS % (AUTO) 1.4 % (0-6); HEMATOCRIT 32.6 % (36.0-47.0); HEMOGLOBIN 10.7 g/dL (12.0-15.5); LYMPHOCYTES % (AUTO) 23.3 % (13-45); MEAN CORPUSCULAR HEMOGLOBIN 29.2 pg (27.0-33.4); MEAN CORPUSCULAR HGB CONC 32.9 g/dL (32.0-36.0); MEAN CORPUSCULAR VOLUME 89 fl (80-97); MONOCYTES % (AUTO) 11.5 % (3-13); PLATELET COUNT 324 10^3/uL (150-450); RED BLOOD COUNT 3.68 10^6/uL (3.72-5.28); RED CELL DISTRIBUTION WIDTH 14.6 % (11.5-14.0); SEGMENTED NEUTROPHILS % (AUTO) 62.6 % (42-78); TOTAL CELLS COUNTED % (AUTO) 100 %; WHITE BLOOD COUNT 6.8 10^3/uL (4.0-10.5)
[2017-10-23 18:59] LABS: APPEARANCE,URINE CLEAR; BILIRUBIN,URINE NEGATIVE (NEGATIVE); COLOR,URINE YELLOW; GLUCOSE, URINE NEGATIVE (NEGATIVE); KETONES,URINE NEGATIVE (NEGATIVE); LEUKOCYTE ESTERASE,URINE NEGATIVE (NEGATIVE); NITRITE,URINE NEGATIVE (NEGATIVE); PROTEIN,URINE NEGATIVE (NEGATIVE); URINE SPECIFIC GRAVITY 1.008; UROBILINOGEN,URINE NEGATIVE mg/dL (<2.0)
--- NOTE | 2017-10-23 19:00 | RADIOLOGY REPORT (SQ) ---
EXAM DESCRIPTION: CHEST 2 VIEWS COMPLETED DATE/TIME: 10/23/2017 6:45 pm REASON FOR STUDY: cough COMPARISON: 2013. NUMBER OF VIEWS: Two view. TECHNIQUE: Frontal and lateral radiographic views of the chest acquired. LIMITATIONS: None. FINDINGS: LUNGS AND PLEURA: Low lung volumes. No opacities, masses or pneumothorax. No pleural eff usion. MEDIASTINUM AND HILAR STRUCTURES: No masses. No contour abnormalities. HEART AND VASCULAR STRUCTURES: Stable cardiomegaly without overt failure. BONES: No acute findings. HARDWARE: None in the chest. OTHER: No other significant finding. IMPRESSION: Low lung volumes. Cardiomegaly. Fairly stable appearance of the chest. TECHNICAL DOCUMENTATION: JOB ID: [id number] [employer]- All Rights Reserved Reading location - IP/workstation name: [email or web address]
--- NOTE | 2017-10-23 20:49 | ER Document Report ---
ED General - General Chief Complaint: Altered Mental Status Stated Complaint: CONFUSION Time Seen by Provider: 10/23/17 17:42 Mode of Arrival: Wheelchair Notes: Patient is a 77-year-old female with past medical history of hypertension, chronic pain, and dementia who presents with family for increasing confusion over the last 3 days. Patient herself is quite demented, unable to provide meaningful history. The family notes that since being seen by her primary care doctor 3 days ago and having her blood pressure medication changed in which her dose of amlodipine was cut from 10 mg to 5 mg daily and being started on clonidine she has seemed increasingly sleepy during the day, restless at night and confused. They note that she is often muttering or talking to herself. They also note that she seems much more disoriented than normal. She has no history of such significant alteration in the past. She has not followed up with her primary doctor since beginning to have these symptoms. Family has not noted that he seems to improve or worsen her symptoms. No fever, vomiting, diarrhea, focal weakness, numbness, or complaints of headache or neck pain. History is otherwise limited secondary to the patient's dementia. TRAVEL OUTSIDE OF THE [place] IN LAST 30 DAYS: No - Related Data Allergies/Adverse Reactions: codeine [Codeine] Allergy (Verified 10/23/17 17:50) ABD PAIN erythromycin base [Erythromycin Base] Allergy (Verified 10/23/17 17:50) UNKNOWN morphine [Morphine] Allergy (Verified 10/23/17 17:50) oxycodone [Oxycodone] Allergy (Verified 10/23/17 17:50) hydrocodone [Hydrocodone] Adverse Reaction (Verified 10/23/17 17:50) methadone [Methadone] Adverse Reaction (Verified 10/23/17 17:50) erythromycin Allergy (Uncoded 10/23/17 17:50) sick Past Medical History - General Information source: Patient, Relative - Social History Smoking Status: Former Smoker Chew tobacco use (# tins/day): No Frequency of alcohol use: None Drug Abuse: None Lives with: Family Family History: Reviewed & Not Pertinent Patient has suicidal ideation: No Patient has homicidal ideation: No - Past Medical History Cardiac Medical History: Reports: Hx Congestive Heart Failure, Hx Heart Attack - stress induced several years ago, Hx Hypercholesterolemia, Hx Hypertension Pulmonary Medical History: Reports: Hx COPD Denies: Hx Asthma, Hx Tuberculosis Neurological Medical History: Denies: Hx Cerebrovascular Accident, Hx Seizures Endocrine Medical History: Reports: Hx Diabetes Mellitus Type 1, Hx Diabetes Mellitus Type 2, Hx Hypothyroidism Renal/ Medical History: Denies: Hx Peritoneal Dialysis GI Medical History: Reports: Hx Gastroesophageal Reflux Disease, Hx Hiatal Hernia. Denies: Hx Hepatitis, Hx Ulcer Musculoskeltal Medical History: Reports Hx Arthritis, Reports Hx Fibromyalgia, Reports Hx Musculoskeletal Deformity, Reports Hx Musculoskeletal Trauma - scoliosis Psychiatric Medical History: Reports: Hx Anxiety, Hx Dementia, Hx Depression Infectious Medical History: Denies: Hx Hepatitis Past Surgical History: Reports: Hx Cardiac Catheterization, Hx Cholecystectomy, Hx Hysterectomy, Hx Orthopedic Surgery - back sx. Denies: Hx Mastectomy, Hx Open Heart Surgery, Hx Pacemaker - Immunizations Hx Diphtheria, Pertussis, Tetanus Vaccination: Yes Hx Pneumococcal Vaccination: 04/04/10 Review of Systems - Review of Systems Notes: Constitutional: Negative for fever. HENT: Negative for sore throat. Eyes: Negative for visual changes. Cardiovascular: Negative for chest pain. Respiratory: Negative for shortness of breath. Gastrointestinal: Negative for abdominal pain, vomiting or diarrhea. Genitourinary: Negative for dysuria. Musculoskeletal: Negative for back pain. Skin: Negative for rash. Neurological: Positive for confusion 10 point ROS negative except as marked above and in HPI. Physical Exam - Vital signs Vitals: Temp Pulse Resp BP Pulse Ox 98.4 F 72 20 141/57 H 90 L 10/23/17 17:40 10/23/17 17:40 10/23/17 17:40 10/23/17 17:40 10/23/17 17:40 Interpretation: Normal Notes: PHYSICAL EXAMINATION: GENERAL: Well-appearing, well-nourished and in no acute distress. HEAD: Atraumatic, normocephalic. EYES: Pupils equal round and reactive to light, extraocular movements intact, sclera anicteric, conjunctiva are normal. ENT: nares patent, oropharynx clear without exudates. Moist mucous membranes. NECK: Normal range of motion, supple without lymphadenopathy LUNGS: Breath sounds clear to auscultation bilaterally and equal. No wheezes rales or rhonchi. HEART: Regular rate and rhythm without murmurs ABDOMEN: Soft, nontender, normoactive bowel sounds. No guarding, no rebound. No masses appreciated. EXTREMITIES: Normal range of motion, no pitting or edema. No cyanosis. NEUROLOGICAL: Face symmetric. Tongue protrudes midline. Extraocular motions intact. Pupils are 2 mm and equally reactive. Normal speech, normal gait. 5 out of 5 strength in both the distal and proximal upper and lower extremities bilaterally. Sensation is grossly intact throughout. Finger to nose testing normal. Pronator drift normal. PSYCH: Wakes easily but is quite sleepy. Oriented to person only. SKIN: Warm, Dry, normal turgor, no rashes or lesions noted. Course - Re-evaluation Re-evalutation: 10/23/17 20:47 Patient presents with her family with concerns of 3 days of progressively worsening confusion, restlessness at night and disorientation. On examination the patient is alert, oriented to person and place but not year or location. She does know that she is at hospital however. The patient has a history of dementia although family notes that this is much worse than her usual. Patient was started on clonidine 3 days ago and the family has noted the deterioration in her condition since that time. I suspect the clonidine is likely the cause of the patient's restlessness as well as her increased confusion as this is a known side effect of this medication particularly given in people who have dementia. I have asked the family to immediately discontinue this medication as well as azithromycin and increase the patient's amlodipine back to 10 mg. I have also asked him to follow-up with a primary care doctor to find an alternative agent such as hydrochlorothiazide to control her chronic essential hypertension. There is not appear to be any acute alternative etiology of the patient's worsening confusion as her labs including a urinalysis are unremarkable. She has no history of head trauma, no focal neurologic deficits to suggest an acute stroke or intracranial bleed. No indication for head imaging at this time. Patient actually has a history of having restlessness and some confusion on clonidine in the past per the family and I have encouraged them to remind the family doctor of this interaction that the patient has had in the past. At this time will discharge with return precautions and follow-up recommendations. Verbal discharge instructions given a the bedside and opportunity for questions given. Medication warnings reviewed. Patient is in agreement with this plan and has verbalized understanding of return precautions and the need for primary care follow-up in the next 24-72 hours. - Vital Signs Vital signs: Temp Pulse Resp BP Pulse Ox 98.6 F 66 18 154/77 H 91 L 10/23/17 21:25 10/23/17 21:25 10/23/17 21:25 10/23/17 21:25 10/23/17 21:25 - Laboratory Result Diagrams: 10/23/17 18:32 10/23/17 20:25 Laboratory results interpreted by me: 10/23/17 10/23/17 18:32 20:25 RBC 3.68 L Hgb 10.7 L Hct 32.6 L RDW 14.6 H Chloride 97 L Carbon Dioxide 37 H BUN 40 H Est GFR ( Amer) 51 L Est GFR (Non-Af Amer) 42 L Glucose 166 H Alkaline Phosphatase 35 L - Diagnostic Test Radiology reviewed: Image reviewed, Reports reviewed Radiology results interpreted by me: 10/23/17 20:49 Chest x-ray: No acute infiltrate or pneumothorax Discharge - Discharge Clinical Impression: Essential hypertension Medication adverse effect Qualifiers: Encounter type: initial encounter Qualified Code(s): T88.7XXA - Unspecified adverse effect of drug or medicament, initial encounter Altered mental status Qualifiers: Altered mental status type: disorientation Qualified Code(s): R41.0 - Disorientation, unspecified Condition: Good Disposition: HOME, SELF-CARE Additional Instructions: Please discontinue the clonidine as well as the azithromycin. Please restart amlodipine 10 mg daily. Consider following up with your primary care doctor and requesting hydrochlorothiazide to manage your blood pressure in addition to the blood pressure medications that you already on. The remainder of your labs and chest x-ray are normal today. Please return to the emergency room immediately if you experience any concerning symptoms including high fevers, severe headache, chest pain, difficulty breathing, abdominal pain, slurred speech, numbness or weakness in your arms or legs, or any other symptom that concerns you. Referrals: PEREZ GALVAN MD [Primary Care Provider] - Follow up as needed
[2017-10-23 20:59] LABS: ALANINE AMINOTRANSFERASE 23 U/L (9-52); ALBUMIN 3.9 g/dL (3.5-5.0); ALKALINE PHOSPHATASE 35 U/L (38-126); ANION GAP 7 (5-19); ASPARTATE AMINO TRANSFERASE 26 U/L (14-36); BILIRUBIN,DIRECT 0.3 mg/dL (0.0-0.4); BILIRUBIN,TOTAL 0.3 mg/dL (0.2-1.3); BLOOD UREA NITROGEN 40 mg/dL (7-20); CALCIUM 9.4 mg/dL (8.4-10.2); CARBON DIOXIDE 37 mmol/L (22-30); CHLORIDE 97 mmol/L (98-107); GLUCOSE 166 mg/dL (75-110); POTASSIUM 4.6 mmol/L (3.6-5.0); SODIUM 140.8 mmol/L (137-145); TOTAL PROTEIN 6.5 g/dL (6.3-8.2)
[2017-10-23 21:25] VITALS: BP 154/77
== END 2017-10-23 21:29 | disposition home or self-care (01) ==
LOC: ER 17:33
DX: I10 Essential (primary) hypertension (principal); R41.0 Disorientation, unspecified; G89.29 Other chronic pain; F03.90 Unspecified dementia, unspecified severity, without behavioral disturbance, psychotic disturbance, mood disturbance, and anxiety; Z79.899 Other long term (current) drug therapy; Z87.891 Personal history of nicotine dependence; E11.9 Type 2 diabetes mellitus without complications; J44.9 Chronic obstructive pulmonary disease, unspecified
CPT/HCPCS: 36415; 71046; 80053; 81001; 85025; 99285

== ENCOUNTER 2017-10-24 15:10 | Inpatient (IN) | payer MEDICARE, OTHER ==
--- NOTE | 2017-10-24 15:57 | ER Document Report ---
ED General <ROSALINE GREY - Last Filed: 10/24/17 19:10> - General Mode of Arrival: Ambulatory Information source: Patient, [facility] Records TRAVEL OUTSIDE OF THE [place] IN LAST 30 DAYS: No <BENJAMINALEX HERNANDEZ - Last Filed: 10/24/17 22:19> - General Chief Complaint: Altered Mental Status Stated Complaint: CONFUSED, SHORTNESS OF BREATH Time Seen by Provider: 10/24/17 15:29 Notes: Patient is a 77-year-old female with a history of hypertension, dementia and CHF presents to the emergency room accompanied by family complaining of increasing confusion over the last 4 days. Patient at bedside does not a provide a history. Family states the patient symptoms were onset after the patient had a change in her blood pressure medication in which her dose of Amlodipine was decreased to 5 mg (from 10 mg) and was started on Clonidine. Family states the patient is increasingly sleepy and confused which is not baseline to the patient. Patient also complains of a cough. Upon arrival to the patient's home, EMS found the patient to be febrile with a axillary tempreature of 102.7 and proceeded to give Tylenol. Patient was also at 87% on room air. Patient normally wears 2 L of oxygen at home. Patient was seen in the emergency department yesterday for similar symptoms and discharged with instructions to stop taking Clonidine and to resume taking Amlodipine 10mg. Patient was also instructed to discontinue taking a Zpack for which she was prescribed for sinus congestions symptoms. Patient's PCP is Dr. Vigil. (ALEX ALEXANDER) - Related Data Allergies/Adverse Reactions: codeine [Codeine] Allergy (Verified 10/23/17 17:50) ABD PAIN erythromycin base [Erythromycin Base] Allergy (Verified 10/23/17 17:50) UNKNOWN morphine [Morphine] Allergy (Verified 10/23/17 17:50) oxycodone [Oxycodone] Allergy (Verified 10/23/17 17:50) hydrocodone [Hydrocodone] Adverse Reaction (Verified 10/23/17 17:50) methadone [Methadone] Adverse Reaction (Verified 10/23/17 17:50) clonidine Allergy (Intermediate, Uncoded 10/24/17 20:20) Delirium erythromycin Allergy (Uncoded 10/23/17 17:50) sick Past Medical History - General Information source: Patient - Social History Smoking Status: Never Smoker Chew tobacco use (# tins/day): No Frequency of alcohol use: None Drug Abuse: None Family History: Reviewed & Not Pertinent Patient has suicidal ideation: No Patient has homicidal ideation: No - Past Medical History Cardiac Medical History: Reports: Hx Congestive Heart Failure, Hx Heart Attack - stress induced several years ago, Hx Hypercholesterolemia, Hx Hypertension Pulmonary Medical History: Reports: Hx COPD Endocrine Medical History: Reports: Hx Diabetes Mellitus Type 1, Hx Diabetes Mellitus Type 2, Hx Hypothyroidism GI Medical History: Reports: Hx Gastroesophageal Reflux Disease, Hx Hiatal Hernia Musculoskeltal Medical History: Reports Hx Arthritis, Reports Hx Fibromyalgia, Reports Hx Musculoskeletal Deformity, Reports Hx Musculoskeletal Trauma - scoliosis Psychiatric Medical History: Reports: Hx Anxiety, Hx Dementia, Hx Depression Past Surgical History: Reports: Hx Cardiac Catheterization, Hx Cholecystectomy, Hx Hysterectomy, Hx Orthopedic Surgery - back sx - Immunizations Hx Diphtheria, Pertussis, Tetanus Vaccination: Yes Hx Pneumococcal Vaccination: 04/04/10 <ALEX ALEXANDER - Last Filed: 10/24/17 22:19> Review of Systems - Review of Systems Constitutional: No symptoms reported EENT: No symptoms reported Cardiovascular: No symptoms reported Respiratory: See HPI, Cough Gastrointestinal: No symptoms reported Genitourinary: No symptoms reported Female Genitourinary: No symptoms reported Musculoskeletal: No symptoms reported Skin: No symptoms reported Hematologic/Lymphatic: No symptoms reported Neurological/Psychological: See HPI, Confusion -: Yes All other systems reviewed and negative <ALEX ALEXANDER - Last Filed: 10/24/17 22:19> Physical Exam - General General appearance: Alert In distress: None - HEENT Head: Normocephalic, Atraumatic - Respiratory Respiratory status: No respiratory distress Chest status: Nontender Breath sounds: Rhonchi Chest palpation: Normal - Cardiovascular Rhythm: Regular Heart sounds: Normal auscultation Murmur: No Friction rub: No Gallop: None auscultated - Abdominal Inspection: Obese Distension: No distension Bowel sounds: Normal Tenderness: Nontender Organomegaly: No organomegaly - Back Back: Normal - Extremities General upper extremity: Normal ROM General lower extremity: Edema - 1+ pitting edema bilaterally - Neurological Neuro grossly intact: Yes Cognition: Normal Orientation: AAOx4 Sharla Coma Scale Eye Opening: Spontaneous [place] Coma Scale Verbal: Oriented [place] Coma Scale Motor: Obeys Commands [place] Coma Scale Total: 15 - Psychological Associated symptoms: Normal affect, Normal mood - Skin Skin Temperature: Hot Skin Moisture: Dry Skin Color: Normal <BENJAMIN,TAMANSON - Last Filed: 10/24/17 22:19> - Vital signs Vitals: Resp 16 10/24/17 15:25 Course - Laboratory Result Diagrams: 10/24/17 16:20 10/24/17 16:20 - Diagnostic Test Radiology reviewed: Image reviewed, Reports reviewed - Chest x-ray shows a worsening bibasilar aeration, atelectasis versus infiltrate compared to last night. This is a portable film, last night was upright 2 view x-ray. - EKG Interpretation by Me EKG shows normal: Sinus rhythm, [place], Intervals, ST-T Waves. abnormal: QRS Complexes - Borderline R-wave progression in anterior leads Rate: Normal - 98 Rhythm: NSR When compared to previous EKG there are: No significant change - Consults Dr. Alicia Consulted provider: will come to ER <ROSALINE GREY - Last Filed: 10/24/17 19:10> - Laboratory Result Diagrams: 10/24/17 16:20 10/24/17 16:20 <ALEX ALEXANDER - Last Filed: 10/24/17 22:19> - Vital Signs Vital signs: Temp Pulse Resp BP Pulse Ox 98.9 F 74 18 118/61 96 10/24/17 18:31 10/24/17 18:00 10/24/17 20:01 10/24/17 20:01 10/24/17 22:01 - Laboratory Laboratory results interpreted by me: 10/24/17 10/24/17 10/24/17 16:20 16:20 16:20 RBC 3.71 L Hgb 11.0 L Hct 32.8 L RDW 14.8 H VBG HCO3 32.2 H Chloride 97 L Carbon Dioxide 36 H BUN 35 H Est GFR ( Amer) 50 L Est GFR (Non-Af Amer) 42 L Glucose 202 H POC Glucose Alkaline Phosphatase 30 L NT-Pro-B Natriuret Pep Urine Protein 10/24/17 10/24/17 10/24/17 16:20 17:50 17:59 RBC Hgb Hct RDW VBG HCO3 Chloride Carbon Dioxide BUN Est GFR ( Amer) Est GFR (Non-Af Amer) Glucose POC Glucose 175 H Alkaline Phosphatase NT-Pro-B Natriuret Pep 736 H Urine Protein 100 H Critical Care Note - Critical Care Note Total time excluding time spent on procedures (mins): 35 <ROSALINE GREY - Last Filed: 10/24/17 19:10> Discharge - Discharge Admitting Provider: Hospitalist Unit Admitted: Telemetry <ROSALINE GREY - Last Filed: 10/24/17 19:10> <ALEX ALEXANDER - Last Filed: 10/24/17 22:19> - Discharge Clinical Impression: Hypoxemia Fever Qualifiers: Fever type: unspecified Qualified Code(s): R50.9 - Fever, unspecified Hypotension Qualifiers: Hypotension type: unspecified hypotension type Qualified Code(s): I95.9 - Hypotension, unspecified Pneumonia Qualifiers: Pneumonia type: due to unspecified organism Laterality: bilateral Lung location : lower lobe of lung Qualified Code(s): J18.1 - Lobar pneumonia, unspecified organism Condition: Good Disposition: ADMITTED INPATIENT Scribe Attestation: 10/24/17 17:06 I personally performed the services described in the documentation, reviewed and edited the documentation which was dictated to the scribe in my presence, and it accurately records my words and actions. (ROSALINE GREY) Scribe Documentation - Scribe Written by Scribe:: Hugo Daigle, 10/24/2017 16:11 acting as scribe for :: Robson <ALEX ALEXANDER - Last Filed: 10/24/17 22:19>
--- NOTE | 2017-10-24 16:04 | RADIOLOGY REPORT (SQ) ---
EXAM DESCRIPTION: CHEST SINGLE VIEW COMPLETED DATE/TIME: 10/24/2017 3:56 pm REASON FOR STUDY: bed 10 sepsis protocol COMPARISON: 10/23/2017. FINDINGS: Single-view portable AP upright chest image. Persistent low lung volumes. Slightly worsening basilar subsegmental atelectasis/ infiltrates when c ompared to yesterday. No pneumothorax. IMPRESSION: Slightly worsening basilar aeration compared to yesterday. TECHNICAL DOCUMENTATION: JOB ID: [id number] Reading location - IP/workstation name: [email or web address]
[2017-10-24] MEDS ORDERED: CEFTRIAXONE 1 GM/D5W RTU 1 GM/50 ML RTUPB IV ONE (16:25)
[2017-10-24] MEDS ORDERED: NORMAL SALINE 1000 ML 200 ML IV ONE (16:26)
[2017-10-24 16:44] LABS: ABSOLUTE EOSINOPHILS # (AUTO) 0.1 10^3/uL (0.0-0.6); ABSOLUTE LYMPHOCYTES (AUTO) 1.3 10^3/uL (0.5-4.7); ABSOLUTE MONOCYTES (AUTO) 1.1 10^3/uL (0.1-1.4); ABSOLUTE NEUT (AUTO) 7.1 10^3/uL (1.7-8.2); BASOPHILS % (AUTO) 0.2 % (0-2); HEMATOCRIT 32.8 % (36.0-47.0); LYMPHOCYTES % (AUTO) 13.3 % (13-45); MEAN CORPUSCULAR HEMOGLOBIN 29.6 pg (27.0-33.4); MEAN CORPUSCULAR HGB CONC 33.4 g/dL (32.0-36.0); MEAN CORPUSCULAR VOLUME 89 fl (80-97); MONOCYTES % (AUTO) 11.6 % (3-13); PLATELET COUNT 310 10^3/uL (150-450); RED BLOOD COUNT 3.71 10^6/uL (3.72-5.28); RED CELL DISTRIBUTION WIDTH 14.8 % (11.5-14.0); SEGMENTED NEUTROPHILS % (AUTO) 73.9 % (42-78); TOTAL CELLS COUNTED % (AUTO) 100 %; WHITE BLOOD COUNT 9.6 10^3/uL (4.0-10.5)
[2017-10-24 16:46] LABS: VENOUS BLOOD BASE EXCESS 5.8 mmol/L; VENOUS BLOOD HCO3 32.2 mmol/L (20-32); VENOUS BLOOD PCO2 52.4 mmHg (35-63); VENOUS BLOOD PH 7.41 (7.30-7.42)
[2017-10-24 16:50] LABS: INTERNATIONAL RATION (INR) 0.94
[2017-10-24 16:59] LABS: ALANINE AMINOTRANSFERASE 20 U/L (9-52); ALBUMIN 3.7 g/dL (3.5-5.0); ALKALINE PHOSPHATASE 30 U/L (38-126); ANION GAP 8 (5-19); ASPARTATE AMINO TRANSFERASE 27 U/L (14-36); BILIRUBIN,DIRECT 0.3 mg/dL (0.0-0.4); BILIRUBIN,TOTAL 0.3 mg/dL (0.2-1.3); BLOOD UREA NITROGEN 35 mg/dL (7-20); CALCIUM 9.3 mg/dL (8.4-10.2); CARBON DIOXIDE 36 mmol/L (22-30); CHLORIDE 97 mmol/L (98-107); GLUCOSE 202 mg/dL (75-110); POTASSIUM 4.1 mmol/L (3.6-5.0); SODIUM 140.5 mmol/L (137-145); TOTAL PROTEIN 6.5 g/dL (6.3-8.2)
[2017-10-24] MEDS ORDERED: CEFTRIAXONE INJ 1000 MG VIAL IV ONE (17:01)
[2017-10-24] MEDS ORDERED: IPRATROPIUM/ALBUTEROL 0.5-2.5 MG/3 ML AMPUL NEB ONE (17:06)
--- NOTE | 2017-10-24 17:17 | EKG REPORT ---
SEVERITY:- BORDERLINE ECG - SINUS TACHYCARDIA VENTRICULAR PREMATURE COMPLEX BORDERLINE R WAVE PROGRESSION, ANTERIOR LEADS : Confirmed by: Ginger Santos 24-Oct-2017 17:16:35
[2017-10-24 17:24] LABS: CREATINE KINASE 68 U/L (30-135)
[2017-10-24 18:14] LABS: APPEARANCE,URINE CLEAR; BILIRUBIN,URINE NEGATIVE (NEGATIVE); COLOR,URINE YELLOW; GLUCOSE, URINE NEGATIVE (NEGATIVE); KETONES,URINE NEGATIVE (NEGATIVE); LEUKOCYTE ESTERASE,URINE NEGATIVE (NEGATIVE); NITRITE,URINE NEGATIVE (NEGATIVE); PROTEIN,URINE 100 mg/dL (NEGATIVE); UROBILINOGEN,URINE NEGATIVE mg/dL (<2.0)
[2017-10-24] MEDS ORDERED: PROMETHAZINE HCL INJ 25 MG/1 ML VIAL IV PRN (19:17)
[2017-10-24] MEDS ORDERED: ALBUTEROL SULFATE 0.083% NEB 2.5 MG/3 ML AMPUL NEB PRN (19:17)
[2017-10-24] MEDS ORDERED: DEXTROSE 40% GEL 15 GM TUBE PO PRN ×2 (19:29)
[2017-10-24] MEDS ORDERED: DEXTROSE 50%-WATER 25 GM/50 ML DISP.SYRIN IV PRN ×2 (19:29)
[2017-10-24] MEDS ORDERED: GLUCAGON,HUMAN RECOMB 1 MG INJ IM PRN (19:29)
[2017-10-24] MEDS ORDERED: VANCOMYCIN HCL 0 MG in DEXTROSE 5%-WATER 250 ML IV NR (19:30)
[2017-10-24] MEDS ORDERED: PIPERACILLIN SODIUM/TAZOBACTAM 3.375 GM in NORMAL SALINE 100 ML IV ONE (19:45)
[2017-10-24] MEDS: PIPERACILLIN/TAZOBACTAM 3.375 GM VIAL IV PRN (19:53)
--- NOTE | 2017-10-24 21:12 | PDOC H&P ---
History of Present Illness Admission Date/PCP: PEREZ GALVAN MD Patient complains of: Altered mental status for the last 2-3 days. Fever up to 102.7 today. History of Present Illness: LARISA DOWELL is a 77 year old female history of dementia of the Alzheimer' s type, Rheumatoid arthritis, CAD/WA/CHF, COPD (on 2 L home oxygen at night) and type 2 diabetes mellitus was admitted with above-mentioned complaints. Most of the history was obtained from family members at bedside and the ED physician/notes. The patient apparently presented to the ED yesterday with the same complaint of increased confusion but she was afebrile at that time. Her symptoms were attributed to Clonidine which was started by her PCP on 10/20/2017 and she apparently had problems with it in the past. She was told to discontinue it and she was discharged home after she had an unremarkable workup. The patient currently seems to be able to understand and follow simple commands. There was no report of any loss of consciousness or dizziness. On further questioning, the family was reporting increased confusion since the patient has been having increased visual hallucinations. According to her , her "confusion" seemed to improve last night since she did not take clonidine and she slept better. Her family brought her back today because she was febrile. Around 2 PM, EMS reported that her temperature was 102.7 upon arrival and her oxygen saturation was 87% on room air. She was given Tylenol and placed on 2 L home oxygen, her blood glucose was not recorded per ED note. The patient denied any chest pain or worsening shortness of breath but she complained of having chills and cough for the last 2-3 days. She also sounded more rhonchorous per her . She is unable to bring up any sputum but she feels congested. There was no report of any sick contact. She apparently was started on Zithromax when she saw her PCP on 10/20/2017 for acute sinusitis (she finished 4 out of 5 days). Of note, erythromycin is listed on her allergy list (it makes her sick). She was advised to stop Zithromax yesterday when she came to the ED. The patient denied any abdominal pain, diarrhea constipation or any urinary symptoms. She is sometimes incontinent of urine. She ambulates using a walker. In the ED, her temperature was 100.9, heart rate 100, respiratory rate 16 (up to 24), blood pressure 139/74 with oxygen saturation of 93% on 2 L nasal cannula. Her WBC was 9.6 and her hemoglobin was 11.0. Her lactic acid was 1.5. Her initial troponin was 0.015 with proBNP of 736. Her blood glucose was 202. She received 1 g Rocephin 1, 1 DuoNeb treatment x1 and 1 L of normal saline x1. Past Medical History Medical History: Other - According ot the patient and family and based on previous records. Cardiac Medical History: Reports: Congestive Heart Failure, Myocardial Infarction - stress induced several years ago, Hyperlipidema, Hypertension Pulmonary Medical History: Reports: Chronic Obstructive Pulmonary Disease (COPD ) - 2 L home oxygen at night. Denies: Asthma, Tuberculosis Neurological Medical History: Denies: Seizures Endocrine Medical History: Reports: Diabetes Mellitus Type 2, Hypothyroidism GI Medical History: Reports: Gastroesophageal Reflux Disease, Hiatal Hernia Denies: Hepatitis Musculoskeltal Medical History: Reports: Arthritis - rheumatoid., Fibromyalgia, Other - peripheral neuropathy. Psychiatric Medical History: Reports: Dementia, Depression Hematology: Reports: Anemia - in past Denies: Sickle Cell Disease Past Surgical History Past Surgical History: Reports: Cardiac Catheterization, Cholecystectomy, Hysterectomy, Orthopedic Surgery - back sx. Denies: Amputation, Mastectomy, Pacemaker Social History Smoking Status: Former Smoker Cigarettes Packs Per Day: 0 - She used to smoke 1 pack a day for 10-15 years. She quit this 30 years ago. Frequency of Alcohol Use: None Hx Recreational Drug Use: No Drugs: None Hx Prescription Drug Abuse: No - Advance Directive Resuscitation Status: Full Code Family History Parental Family History Reviewed: Yes - Mother: diabetes. Children Family History Reviewed: No Sibling(s) Family History Reviewed.: Yes Medication/Allergy Home Medications: Albuterol Sulfate [Proair HFA Inhalation Aerosol 8.5 gm MDI] 1 puff IH Q6HP PRN 10/31/16 Amlodipine Besylate [Norvasc 10 mg Tablet] 10 mg PO DAILY 10/31/16 Atorvastatin Calcium [Lipitor 20 mg Tablet] 20 mg PO QHS 10/31/16 Cholecalciferol (Vitamin D3) [Vitamin D3 5000 unit Capsule] 5,000 unit PO DAILY 10/31/16 Cyanocobalamin (Vitamin B-12) [Vitamin B-12] 1,000 mcg PO QPM 10/31/16 Donepezil HCl [Aricept] 10 mg PO QPM 10/31/16 Duloxetine HCl [Cymbalta] 60 mg PO Q12 10/31/16 Fenofibrate 160 mg PO QPM 10/31/16 Fluticasone Propionate [Flonase Nasal [place] 50 Mcg/[place] 16 gm] 2 sprays NASL DAILY 10/31/16 Fluticasone/Salmeterol [Advair 100-50 Diskus 28 Dose] 1 inh IH Q12 10/31/16 Folic Acid [Folvite 1 mg Tablet] 2 mg PO DAILY 10/31/16 Furosemide [Lasix] 80 mg PO Q12 10/31/16 Insulin Glargine,Hum.rec.anlog [Lantus Solostar] 30 unit SQ DAILY 10/31/16 Insulin Glulisine [Apidra Insulin (Glulisine) 100 unit/mL] 0 unit SUBCUT .SLIDING SCALE 10/31/16 Irbesartan [Avapro] 300 mg PO QPM 10/31/16 Isosorbide Mononitrate [Imdur 30 mg Tablet.er] 30 mg PO DAILY 10/31/16 Leflunomide [Arava] 10 mg PO QPM 10/31/16 Levothyroxine Sodium [Synthroid 0.1 mg Tablet] 0.1 mg PO DAILY@1100 10/31/16 Memantine HCl [Namenda Xr] 7 mg PO NOON 10/31/16 Methotrexate Sodium [Methotrexate] 10 mg PO FR@1000 10/31/16 Mirtazapine [Remeron 15 mg Tablet] 30 mg PO QHS 10/31/16 Montelukast Sodium [Singulair 10 mg Tablet] 10 mg PO QHS 10/31/16 Omeprazole 40 mg PO QPM 10/31/16 Pioglitazone HCl [Actos 15 mg Tablet] 15 mg PO DAILY 10/31/16 Potassium Chloride [K-Tab ER] 20 meq PO BID 10/31/16 Prednisone [Deltasone 1 mg Tablet] 3 mg PO DAILY 10/31/16 Pregabalin [Lyrica] 150 mg PO Q12 10/31/16 Progesterone, Micronized [Progesterone] 100 mg PO QHS 10/31/16 Sodium Bicarbonate [Sodium Bicarbonate 650 mg Tablet] 650 mg PO DAILY 10/31/16 Tramadol HCl [Ultram 50 mg Tablet] 50 mg PO Q6HP PRN 10/31/16 Levofloxacin [Levaquin 750 mg Tablet] 750 mg PO DAILY #5 tablet 11/02/16 Allergies/Adverse Reactions: codeine [Codeine] Allergy (Verified 10/23/17 17:50) ABD PAIN erythromycin base [Erythromycin Base] Allergy (Verified 10/23/17 17:50) UNKNOWN morphine [Morphine] Allergy (Verified 10/23/17 17:50) oxycodone [Oxycodone] Allergy (Verified 10/23/17 17:50) hydrocodone [Hydrocodone] Adverse Reaction (Verified 10/23/17 17:50) methadone [Methadone] Adverse Reaction (Verified 10/23/17 17:50) clonidine Allergy (Intermediate, Uncoded 10/24/17 20:20) Delirium erythromycin Allergy (Uncoded 10/23/17 17:50) sick Review of Systems ROS unobtainable: Other - Unable to obtain an accurate review of system given the patient's mental status. Physical Exam Vital Signs: Temp Pulse Resp BP Pulse Ox 98.9 F 74 35 H 108/54 L 95 10/24/17 18:31 10/24/17 18:00 10/24/17 18:00 10/24/17 18:00 10/24/17 18:00 General appearance: PRESENT: no acute distress, obese, well-developed, well- nourished Head exam: PRESENT: atraumatic, normocephalic Eye exam: PRESENT: PERRLA Mouth exam: PRESENT: moist, neck supple Neck exam: PRESENT: full ROM. ABSENT: JVD Respiratory exam: PRESENT: decreased breath sounds, rhonchi. ABSENT: rales, wheezes Cardiovascular exam: PRESENT: RRR, +S1, +S2 Pulses: PRESENT: normal dorsalis pedis pul GI/Abdominal exam: PRESENT: normal bowel sounds, soft. ABSENT: distended, rebound, tenderness Rectal exam: PRESENT: deferred Extremities exam: PRESENT: pedal edema - left leg chronically (+2). Musculoskeletal exam: PRESENT: other - Able to move all 4 extremities. Neurological exam: PRESENT: oriented to person, oriented to place, CN II-XII grossly intact - except CNVIII., motor sensory deficit - 4/5 throughout. Chronic peripheral neuropathy bilateral feet intermittently. Left sciatica. No Babinski or clonus. Gait was not assessed., other - sleepy but arousable.. ABSENT: oriented to time, oriented to situation Skin exam: PRESENT: intact, warm. ABSENT: erythema, rash Results Laboratory Results: 10/24/17 16:20 10/24/17 16:20 10/24/17 10/24/17 10/24/17 16:20 16:20 16:20 WBC 9.6 RBC 3.71 L Hgb 11.0 L Hct 32.8 L MCV 89 MCH 29.6 MCHC 33.4 RDW 14.8 H Plt Count 310 Seg Neutrophils % 73.9 Lymphocytes % 13.3 Monocytes % 11.6 Eosinophils % 1.0 Basophils % 0.2 Absolute Neutrophils 7.1 Absolute Lymphocytes 1.3 Absolute Monocytes 1.1 Absolute Eosinophils 0.1 Absolute Basophils 0.0 VBG pH VBG pCO2 VBG HCO3 VBG Base Excess Sodium 140.5 Potassium 4.1 Chloride 97 L Carbon Dioxide 36 H Anion Gap 8 BUN 35 H Creatinine 1.25 Est GFR ( Amer) 50 L Est GFR (Non-Af Amer) 42 L Glucose 202 H Lactic Acid 1.5 Calcium 9.3 Magnesium Total Bilirubin 0.3 AST 27 ALT 20 Alkaline Phosphatase 30 L Total Protein 6.5 Albumin 3.7 Urine Color Urine Appearance Urine pH Ur Specific [place] Urine Protein Urine Glucose (UA) Urine Ketones Urine Blood Urine Nitrite Ur Leukocyte Esterase Urine WBC (Auto) 10/24/17 10/24/17 10/24/17 16:20 16:20 17:59 WBC RBC Hgb Hct MCV MCH MCHC RDW Plt Count Seg Neutrophils % Lymphocytes % Monocytes % Eosinophils % Basophils % Absolute Neutrophils Absolute Lymphocytes Absolute Monocytes Absolute Eosinophils Absolute Basophils VBG pH 7.41 VBG pCO2 52.4 VBG HCO3 32.2 H VBG Base Excess 5.8 Sodium Potassium Chloride Carbon Dioxide Anion Gap BUN Creatinine Est GFR ( Amer) Est GFR (Non-Af Amer) Glucose Lactic Acid Calcium Magnesium 1.6 Total Bilirubin AST ALT Alkaline Phosphatase Total Protein Albumin Urine Color YELLOW Urine Appearance CLEAR Urine pH 5.0 Ur Specific [place] 1.010 Urine Protein 100 H Urine Glucose (UA) NEGATIVE Urine Ketones NEGATIVE Urine Blood NEGATIVE Urine Nitrite NEGATIVE Ur Leukocyte Esterase NEGATIVE Urine WBC (Auto) 0 10/24/17 10/24/17 10/24/17 16:20 16:20 16:20 Creatine Kinase 68 Troponin I 0.015 NT-Pro-B Natriuret Pep 736 H EKG Comments: Twelve-lead EKG: Sinus rhythm, ventricular rate 100, axis +60, QTC prolongation , poor R-wave propagation, first-degree AV block, no acute changes. To a previous twelve-lead EKG done on 10/31/2016, sinus rhythm, ventricular rate 70, [place] 0, APCs, no acute changes. Impressions: Chest X-Ray 10/24/17 15:17 IMPRESSION: Slightly worsening basilar aeration compared to yesterday. Assessment & Plan - Diagnosis (1) Acute encephalopathy Is this a current diagnosis for this admission?: Yes Plan: Secondary to delirium in addition to dementia. She was having visual hallucinations secondary to possibly infection, metabolic and and/or medications. Will check head CT scan, TSH and B12. Will avoid medications that can cause confusion. Further management as detailed below. (2) Sepsis Is this a current diagnosis for this admission?: Yes Plan: Given fever and tachycardia in the setting of possible pneumonia. Chest x-ray and UA reviewed. Her lactic acid was 1.5. Will start a broad coverage antibiotics with vancomycin and Zosyn given immunocompromised state and check a CAT scan angiogram of the chest. Will follow-up blood and urine cultures and repeat lactic acid. (3) Acute and chronic respiratory failure with hypoxia Is this a current diagnosis for this admission?: Yes Plan: Given tachypnea and oxygen saturation of 87% on room air per EMS requiring 2 L oxygen by nasal cannula, secondary to COPD exacerbation and/or pneumonia. ABG amd CXR reviewed. We will follow-up CAT scan angiogram of the chest and start scheduled duonebs, IV Solu-Medrol and monitor. T (4) Essential hypertension Is this a current diagnosis for this admission?: Yes Plan: currently controlled. According to her family, the patient BP medications were changed on 10/20/2017. Her Norvasc was decreased from 10 to 5 mg daily and clonidine was added since she has been hypertensive in the last few months. We will continue to monitor and adjust her blood pressure medications as indicated. (5) Type 2 diabetes mellitus Qualifiers: Diabetes mellitus halfway insulin use: with terminal makeup operator use Diabetes mellitus complication status: with unspecified complications Qualified Code(s) : E11.8 - Type 2 diabetes mellitus with unspecified complications; Z79.4 - dedicated intermodal truck driver (current) use of insulin; Z79.4 - dedicated intermodal truck driver (current) use of insulin; Z79.4 - MCC (current) use of insulin; Z79.4 - MCC (current) use of insulin Is this a current diagnosis for this admission?: Yes Plan: We will resume her 30 units Lantus every morning and add humolog sliding scale. We will hold Actos for now and adjust her insulin dose while on steroids. (6) Rheumatoid arthritis Is this a current diagnosis for this admission?: No Plan: She is on oral methotrexate 10 mg q. Wednesday, Lefunamide 10 mg QPM and prednisone 3 mg daily (all held now). - Time Time Spent: Greater than 70 Minutes - Inpatient Certification Based on my medical assessment, after consideration of the patient's comorbidities, presenting symptoms, or acuity I expect that the services needed warrant INPATIENT care.: Yes I certify that my determination is in accordance with my understanding of Medicare's requirements for reasonable and necessary INPATIENT services [42 CFR 412.3e].: Yes
[2017-10-24] MEDS ORDERED: VANCOMYCIN HCL INJ 1000 MG VIAL IV PRN (21:36)
[2017-10-24] MEDS ORDERED: VANCOMYCIN HCL 1,000 MG in DEXTROSE 5%-WATER 250 ML IV ONE (22:00)
[2017-10-24] MEDS ORDERED: FLUTICASONE/SALMETEROL DISKUS 100-50 MCG/DOSE IH SCH (22:00)
[2017-10-24] MEDS: METHYLPREDNISOLONE INJ 40 MG/1 ML SDV IV SCH (22:56)
[2017-10-24] MEDS: HEPARIN SOD (PORCINE) 5,000 UNIT/ML 1 ML SYRINGE SUBCUT SCH (22:58)
--- NOTE | 2017-10-24 23:23 | RADIOLOGY REPORT (SQ) ---
EXAM DESCRIPTION: CT HEAD WITHOUT COMPLETED DATE/TIME: 10/24/2017 10:12 pm REASON FOR STUDY: confusion COMPARISON: 02/28/2014 TECHNIQUE: Axial images acquired through the brain without intravenous contrast. Images reviewed wi th bone, brain and subdural windows. Images stored on PACS. All CT scanners at this facility use dose modulation, iterative reconstruction, and/or weight based d osing when appropriate to reduce radiation dose to as low as reasonably achievable (ALARA). [facility]: Dose Right [facility]: CareDose [facility]: Dose Right [facility]: Teradose 4D [facility]: [employer] RADIATION DOSE: CT Rad equipment meets quality standard of care and radiation dose reduction techniq ues were employed. CTDIvol: 53.2 mGy. DLP: 991 mGy-cm. mGy. LIMITATIONS: None. FINDINGS: VENTRICLES: Age-appropriate. CEREBRUM: No masses. No hemorrhage. No midline shift. Areas of low density in the white matter mos t likely due to chronic micro-vascular ischemic change. No evidence for acute infarction. CEREBELLUM: No masses. No hemorrhage. No alteration of density. No evidence for acute infarction. EXTRAAXIAL SPACES: Mild age-related involutional change. No fluid collections. No masses. ORBITS AND GLOBE: No intra- or extraconal masses. Normal contour of globe without masses. CALVARIUM: No fracture. PARANASAL SINUSES: Small right maxillary sinus air-fluid level. Mild mucosal thickening in the ethmo id and left maxillary sinus. SOFT TISSUES: No mass or hematoma. OTHER: No other significant finding. IMPRESSION: No acute intracranial findings. Sinusitis. EVIDENCE OF ACUTE STROKE: No TECHNICAL DOCUMENTATION: JOB ID: [id number] [id number] Quality ID # [id number]: Final reports with documentation of one or more dose reduction techniques (e.g., Au tomated exposure control, adjustment of the mA and/or kV according to patient size, use of iterative reconstruction technique) 2010 [employer]- All Rights Reserved Reading location - IP/workstation name: [email or web address]
[2017-10-24] MEDS: MONTELUKAST SODIUM 10 MG TABLET PO SCH (23:56)
--- NOTE | 2017-10-24 23:57 | RADIOLOGY REPORT (SQ) ---
EXAM DESCRIPTION: CTA CHEST COMPLETED DATE/TIME: 10/24/2017 10:12 pm REASON FOR STUDY: Fever/hypoxia COMPARISON: None. TECHNIQUE: CT scan of the chest performed using helical scanning technique with dynamic intravenous contrast injection. Images reviewed with lung, soft tissue and bone windows. Reconstructed coronal and sagittal MPR images reviewed. Additional 3 dimensional post-processing performed to develop Maximal Intensity Projection images (HI P). All images stored on PACS. All CT scanners at this facility use dose modulation, iterative reconstruction, and/or weight based d osing when appropriate to reduce radiation dose to as low as reasonably achievable (ALARA). [facility]: Dose Right [facility]: CareDose [facility]: Dose Right [facility]: Teradose 4D [facility]: CatchFree CONTRAST TYPE AND DOSE: contrast/concentration: Isovue 370.00 mg/ml; Total Contrast Delivered: 78.0 ml; Total Saline Delivered: 110.0 ml Contrast bolus optimized for the pulmonary arteries. Not diagnostic for the aorta. RENAL FUNCTION: GFR > 60. RADIATION DOSE: CT Rad equipment meets quality standard of care and radiation dose reduction techniq ues were employed. CTDIvol: 29.8 - 33.1 mGy. DLP: 1218 mGy-cm. . LIMITATIONS: None. FINDINGS: LUNGS AND PLEURA: Patchy consolidation in the lateral aspect of the left upper and lower l obes. Trace left pleural effusion. Mild basilar subsegmental atelectasis in the right medial lower lobe. No pneumothorax. AORTA AND GREAT VESSELS: No aneurysm. Contrast bolus not optimized for the aorta. HEART: No pericardial effusion. Moderate coronary artery calcifications. PULMONARY ARTERIES: No emboli visualized in the main pulmonary arteries or the segmental branches. HILAR AND MEDIASTINAL STRUCTURES: No identified masses or abnormal nodes. HARDWARE: None in the chest. UPPER ABDOMEN: No significant findings. Limited exam. THYROID AND OTHER SOFT TISSUES: No masses. No adenopathy. BONES: No acute finding. 3D MIPS: Confirm above findings. OTHER: No other significant finding. IMPRESSION: Patchy consolidation in the lateral aspect of the left upper and lower lobes. Trace lef t pleural effusion.. NO PULMONARY EMBOLI. COMMENT: Quality ID # [id number]: Final reports with documentation of one or more dose reduction techniques (e.g., Automated exposure control, adjustment of the mA and/or kV according to patient size, use of iterative reconstruction technique) TECHNICAL DOCUMENTATION: JOB ID: [id number] [id number] 2010 [employer] [place]- All Rights Reserved Reading location - IP/workstation name: [facility]
[2017-10-25] MEDS ORDERED: PIPERACILLIN/TAZOBACTAM 3.375 GM VIAL IV ONE (00:48)
[2017-10-25] MEDS: IPRATROPIUM/ALBUTEROL 0.5-2.5 MG/3 ML AMPUL NEB SCH ×4 (02:10→20:05)
[2017-10-25] MEDS: HEPARIN SOD (PORCINE) 5,000 UNIT/ML 1 ML SYRINGE SUBCUT SCH ×3 (05:17→22:40)
[2017-10-25] MEDS: PIPERACILLIN/TAZOBACTAM 3.375 GM VIAL IV PRN (05:17)
[2017-10-25] MEDS: LEVOTHYROXINE SODIUM 0.1 MG TABLET PO SCH (05:17)
[2017-10-25] MEDS: METHYLPREDNISOLONE INJ 40 MG/1 ML SDV IV SCH ×3 (05:17→22:40)
[2017-10-25] MEDS ORDERED: PIPERACILLIN SODIUM/TAZOBACTAM 3.375 GM in NORMAL SALINE 100 ML IV SCH ×3 (06:00)
[2017-10-25] MEDS: TRAMADOL HCL 50 MG TABLET PO PRN ×3 (06:46→19:26)
[2017-10-25 07:12] LABS: HEMOGLOBIN 10.6 g/dL (12.0-15.5); MEAN CORPUSCULAR HEMOGLOBIN 29.7 pg (27.0-33.4); MEAN CORPUSCULAR HGB CONC 33.2 g/dL (32.0-36.0); MEAN CORPUSCULAR VOLUME 90 fl (80-97); PLATELET COUNT 321 10^3/uL (150-450); RED BLOOD COUNT 3.58 10^6/uL (3.72-5.28); RED CELL DISTRIBUTION WIDTH 14.8 % (11.5-14.0); WHITE BLOOD COUNT 8.4 10^3/uL (4.0-10.5)
[2017-10-25] MEDS: INSULIN LISPRO 100 UNIT/ML 3 ML VIAL SUBCUT PRN ×3 (07:27→16:42)
[2017-10-25 07:54] LABS: ANION GAP 13 (5-19); BLOOD UREA NITROGEN 31 mg/dL (7-20); CARBON DIOXIDE 30 mmol/L (22-30); CHLORIDE 101 mmol/L (98-107); GLUCOSE 243 mg/dL (75-110); POTASSIUM 4.6 mmol/L (3.6-5.0); SODIUM 143.9 mmol/L (137-145)
[2017-10-25] MEDS: ACETAMINOPHEN 325 MG TABLET PO PRN ×3 (09:37→23:58)
[2017-10-25] MEDS: INSULIN GLARGINE,HUM.REC.ANLOG 300 UNIT/3 ML INSULN.PEN SUBCUT SCH (09:38)
[2017-10-25] MEDS: SODIUM BICARBONATE 650 MG TABLET PO SCH (09:38)
[2017-10-25] MEDS: CHOLECALCIFEROL (D3) 1,000 UNIT TABLET PO SCH (09:38)
[2017-10-25] MEDS: FOLIC ACID 1 MG TABLET PO SCH (09:38)
[2017-10-25] MEDS: NORMAL SALINE 1000 ML 1,000 ML IV PRN (11:09)
[2017-10-25] MEDS: VANCOMYCIN HCL 1,000 MG in DEXTROSE 5%-WATER 250 ML IV SCH (13:05)
[2017-10-25] MEDS ORDERED: MEROPENEM 500 MG in NORMAL SALINE 50 ML IV SCH (14:00)
--- NOTE | 2017-10-25 14:44 | Physician Advisory Note ---
Physician Advisor ProgressNote .: Pursuant to the plan for [facility], I have reviewed the medical record for this patient. Physician Advisor Statement: Very nice documentation of acute encephalopathy (metabolic type?) due to delirium, likely due to infection ... with visual hallucinations & increased sleepiness/confusion, on top of/addition to her underlying dementia (vs toxic type encephalopathy due to meds). Also excellent documentation of chronic resp failure (COPD, needs 2L O2 at baseline), & chronic immunosuppresion. Please consider documenting, if you agree: 1. "PNA, suspect ____ type [gram-neg? MRSA? ...], evidenced by ", with small/trace "pleural effusion" 2. Supporting evidence for dx "Acute Resp Failure" (increased work of breathing /labored breathing/accessory muscle use, increased O2 need or acute hypercarbia with acidosis, etc), or state this dx was "considered but ruled out". 3. "Chronic CHF, suspect ___ type" - I find no prior ECHO results in [facility] to help. CXR doesn't indicate any cardiomegaly. 4. If pt has had any hypoxemia worse than her baseline, please document this & whether it is likely due to sepsis, PNA, or both. 5. If pt has had, or develops, any organ failure that is "due to sepsis", please document that as such. Status: immunosuppressed elderly pt w/COPD/chr resp failure, ambulatory dysfunction & debility, chronic __ type CHF, with fibromyalgia, scoliosis, BLE neuropathy, ... presenting with acute metabolic (&/or toxic) encephalopathy on top of her usual dementia findings, with high fever, s/s & radiol findings of acute PNA. VERY high risk for further acute morbidity/mortality. Very worrisome that she hasn't been able to muster a leukocytosis response so far. Attending is clearly concerned for possible [id number] organism, changing her abx today from Rocephin/vanc to vanc/meropenem. Has already spent 1MN in hospital care, clearly not yet safe for d/c today. Appropriate for Inpatient status. Thanks! CK Supporting evidence documented so far for sepsis includes: fever to 102.7, tachycardia to 100, tachypnea frequently in mid-20s, hypotension developing after arrival - to MAP as low as 59, evidence of PNA (as source), AMS - in pt who is at MUCH increased risk for dangerous infection due to underlying immunosuppression from DM & meds (Arava, MTX, prednisone). - Therefore, she meets Sepsis-2 and Sepsis-3 criteria for dx of sepsis, present on adm. Supporting evidence documented so far for PNA includes: fever, tachypnea, tachycardia, AMS, chills & cough, rhonchi, sputum that won't come up, possible infiltrate on CXR, patchy consolidation on CTA.
[2017-10-25] MEDS ORDERED: CYANOCOBALAMIN (VITAMIN B-12) 1,000 MCG TABLET PO SCH (18:00)
--- NOTE | 2017-10-25 18:40 | PDOC PROGRESS REPORT ---
Subjective Progress Note for:: 10/25/17 Subjective:: LARISA DOWELL is a 77 y.o. female who presented to the emergency department with altered mental status, visual hallucinations and a fever of 102.7. The patient's altered mental status is thought to be secondary to clonidine versus infectious process. Her chest CT confirmed left-sided pneumonia. The patient has a PMH of CAD, CA, CHF, COPD on 2 L home oxygen, type 2 diabetes, dementia. The patient was seen this morning on rounds, she is resting comfortably in bed on supplemental oxygen. The patient states that she feels much better this morning. She states that she is still having visual hallucinations, she has difficulty describing the nature of her visual hallucinations, she states that the best description is she is 'seeing shadows' that she knows are not there. Her lung sounds are clear to auscultation and the patient endorses a productive cough. She denies shortness of breath or chest pain or fever or chills. Reason For Visit: ALTERED MENTAL STATUS Physical Exam Vital Signs: Temp Pulse Resp BP Pulse Ox 98.7 F 73 20 151/80 H 91 L 10/25/17 11:17 10/25/17 14:00 10/25/17 11:17 10/25/17 11:17 10/25/17 11:17 Intake & Output 10/24/17 10/25/17 10/26/17 06:59 06:59 06:59 Intake Total 1200 Balance 1200 Weight 94.8 kg General appearance: PRESENT: no acute distress, morbidly obese, well-developed Head exam: PRESENT: atraumatic Eye exam: PRESENT: conjunctiva pink, PERRLA Mouth exam: PRESENT: moist Neck exam: PRESENT: full ROM Respiratory exam: PRESENT: clear to auscultation lolly, symmetrical, unlabored Cardiovascular exam: PRESENT: +S1, +S2 Pulses: PRESENT: normal radial pulses, normal dorsalis pedis pul Vascular exam: PRESENT: normal capillary refill GI/Abdominal exam: PRESENT: normal bowel sounds, soft. ABSENT: tenderness Rectal exam: PRESENT: deferred Extremities exam: PRESENT: full ROM Musculoskeletal exam: PRESENT: ambulatory, full ROM Neurological exam: PRESENT: alert, awake, oriented to person, oriented to place , oriented to time, oriented to situation Psychiatric exam: PRESENT: appropriate affect, other - Visual hallucinations Skin exam: PRESENT: intact, normal color Results Laboratory Results: 10/25/17 06:52 10/25/17 06:52 10/25/17 10/25/17 10/25/17 06:52 06:52 06:52 WBC 8.4 RBC 3.58 L Hgb 10.6 L Hct 32.0 L MCV 90 MCH 29.7 MCHC 33.2 RDW 14.8 H Plt Count 321 Sodium 143.9 Potassium 4.6 Chloride 101 Carbon Dioxide 30 Anion Gap 13 BUN 31 H Creatinine 1.24 Est GFR ( Amer) 51 L Est GFR (Non-Af Amer) 42 L Glucose 243 H Calcium 9.0 Magnesium 1.9 Vitamin B12 > 1000.0 H Impressions: Chest/Abdomen CTA 10/24/17 00:00 IMPRESSION: Patchy consolidation in the lateral aspect of the left upper and lower lobes. Trace left pleural effusion.. NO PULMONARY EMBOLI. Head CT 10/24/17 00:00 IMPRESSION: No acute intracranial findings. Sinusitis. EVIDENCE OF ACUTE STROKE: No Chest X-Ray 10/24/17 15:17 IMPRESSION: Slightly worsening basilar aeration compared to yesterday. Status: Imported from PACS Assessment & Plan - Diagnosis (1) Sepsis Is this a current diagnosis for this admission?: Yes Plan: Sepsis secondary to pneumonia as evidenced by fever 102.7 and tachycardia. Lactate 1.[address] demonstrates left-sided pneumonia. Continue vancomycin and Zosyn given immunocompromised state in patient with rheumatoid arthritis. Blood and urine cultures pending. Head CT negative We will check TSH and B12 in a.m. (2) Acute and chronic respiratory failure with hypoxia Is this a current diagnosis for this admission?: Yes Plan: Likely secondary to COPD exacerbation stemming from pneumonia. EMS reports the patient was tachypneic and hypoxic with an oxygen saturation of 87% on room air. The patient reports she typically wears 2 L home O2 only at night. IV Solu-Medrol and scheduled duo nebs (3) Acute encephalopathy Is this a current diagnosis for this admission?: Yes Plan: Secondary to delirium in addition to dementia. The patient endorses having visual hallucinations. Etiology includes infection, metabolic and or medications. Avoid medications that can cause confusion and further exacerbate her encephalopathy. (4) Essential hypertension Is this a current diagnosis for this admission?: Yes Plan: Patient endorses a history of hypertension. BP medications changed on October 20, her Norvasc was decreased from 10 to 5 mg daily and clonidine was added. Clonidine currently discontinued as we believe it may be contributing to her altered mental status. The patient has remained relatively normotensive since arrival. We will continue Norvasc, as needed hydralazine for SBP greater than 170 (5) Type 2 diabetes mellitus Qualifiers: Diabetes mellitus exterminator insulin use: with jail use Diabetes mellitus complication status: with unspecified complications Qualified Code(s) : E11.8 - Type 2 diabetes mellitus with unspecified complications; Z79.4 - nursing home (current) use of insulin; Z79.4 - nursing home (current) use of insulin; Z79.4 - ferry terminal agent (current) use of insulin; Z79.4 - nursing home (current) use of insulin Is this a current diagnosis for this admission?: Yes Plan: Resume 30 units Lantus daily and Humalog sliding scale, will likely need to adjust while patient is on IV steroids. Currently holding home dose Actos (6) Rheumatoid arthritis Is this a current diagnosis for this admission?: No Plan: Currently on oral methotrexate 10 mg every Wednesday,Lefunamide 10 mg every afternoon and prednisone 3 mg daily. ALL medications currently on hold to avoid further imaging suppression while patient is actively infected with pneumonia - Time Time Spent with patient: 15-24 minutes Medications reviewed and adjusted accordingly: Yes Anticipated discharge: Home Within: within 72 hours - Inpatient Certification Based on my medical assessment, after consideration of the patient's comorbidities, presenting symptoms, or acuity I expect that the services needed warrant INPATIENT care.: Yes I certify that my determination is in accordance with my understanding of Medicare's requirements for reasonable and necessary INPATIENT services [42 CFR 412.3e].: Yes Medical Necessity: Need for IV Antibiotics - Plan Summary Plan Summary: Continue to treat community-acquired pneumonia. Refrain from clonidine and Zithromax administration.
[2017-10-25] MEDS ORDERED: TRAZODONE HCL 50 MG TABLET PO ONE (21:00)
[2017-10-25] MEDS ORDERED: TRAZODONE HCL 50 MG TABLET PO PRN (22:00)
[2017-10-25] MEDS: MONTELUKAST SODIUM 10 MG TABLET PO SCH (22:40)
[2017-10-25] MEDS: PIPERACILLIN SODIUM/TAZOBACTAM 3.375 GM in NORMAL SALINE 100 ML IV SCH (23:43)
[2017-10-26] MEDS: INSULIN LISPRO 100 UNIT/ML 3 ML VIAL SUBCUT PRN ×5 (00:15→21:27)
[2017-10-26] MEDS: TRAMADOL HCL 50 MG TABLET PO PRN ×4 (01:49→23:24)
[2017-10-26] MEDS: IPRATROPIUM/ALBUTEROL 0.5-2.5 MG/3 ML AMPUL NEB SCH ×4 (01:57→20:51)
[2017-10-26 06:21] LABS: HEMATOCRIT 32.9 % (36.0-47.0); MEAN CORPUSCULAR HEMOGLOBIN 29.5 pg (27.0-33.4); MEAN CORPUSCULAR HGB CONC 33.3 g/dL (32.0-36.0); MEAN CORPUSCULAR VOLUME 88 fl (80-97); PLATELET COUNT 354 10^3/uL (150-450); RED BLOOD COUNT 3.72 10^6/uL (3.72-5.28); RED CELL DISTRIBUTION WIDTH 14.4 % (11.5-14.0); WHITE BLOOD COUNT 8.5 10^3/uL (4.0-10.5)
[2017-10-26] MEDS: ACETAMINOPHEN 325 MG TABLET PO PRN ×3 (06:27→19:39)
[2017-10-26] MEDS: LEVOTHYROXINE SODIUM 0.1 MG TABLET PO SCH (06:28)
[2017-10-26] MEDS: PIPERACILLIN SODIUM/TAZOBACTAM 3.375 GM in NORMAL SALINE 100 ML IV SCH ×4 (06:29→23:24)
[2017-10-26] MEDS: HEPARIN SOD (PORCINE) 5,000 UNIT/ML 1 ML SYRINGE SUBCUT SCH ×3 (06:29→21:15)
[2017-10-26] MEDS: METHYLPREDNISOLONE INJ 40 MG/1 ML SDV IV SCH (06:31)
[2017-10-26 06:48] LABS: ANION GAP 11 (5-19); BLOOD UREA NITROGEN 23 mg/dL (7-20); CALCIUM 9.5 mg/dL (8.4-10.2); CARBON DIOXIDE 32 mmol/L (22-30); CHLORIDE 102 mmol/L (98-107); GLUCOSE 216 mg/dL (75-110); PHOSPHORUS 2.8 mg/dL (2.5-4.5); POTASSIUM 4.3 mmol/L (3.6-5.0); SODIUM 145.2 mmol/L (137-145)
[2017-10-26 08:01] LABS: ABSOLUTE LYMPHOCYTES# (MANUAL) 0.3 10^3/uL (0.5-4.7); ABSOLUTE MONOCYTES # (MANUAL) 0.4 10^3/uL (0.1-1.4); ABSOLUTE NEUTROPHILS# (MANUAL) 7.7 10^3/uL (1.7-8.2); BASOPHILS % (MANUAL) 0 % (0-2); EOSINOPHILS % (MANUAL) 0 % (0-6); LYMPHOCYTES % (MANUAL) 4 % (13-45); MONOCYTES % (MANUAL) 5 % (3-13); SEGMENTED NEUTROPHILS % (MAN) 91 % (42-78); TOTAL CELLS COUNTED 100
[2017-10-26 08:03] LABS: ANISOCYTOSIS SLIGHT; OVALOCYTES SLIGHT; PLATELET COMMENT ADEQUATE; POIKILOCYTOSIS SLIGHT
[2017-10-26] MEDS ORDERED: HYDRALAZINE HCL INJ/PF 20 MG/1 ML SDV IV PRN (08:21)
[2017-10-26] MEDS: INSULIN GLARGINE,HUM.REC.ANLOG 300 UNIT/3 ML INSULN.PEN SUBCUT SCH (09:17)
[2017-10-26] MEDS: SODIUM BICARBONATE 650 MG TABLET PO SCH (09:18)
[2017-10-26] MEDS: CHOLECALCIFEROL (D3) 1,000 UNIT TABLET PO SCH (09:18)
[2017-10-26] MEDS: FOLIC ACID 1 MG TABLET PO SCH (09:18)
[2017-10-26] MEDS ORDERED: DULOXETINE HCL 30 MG CAPSULE.DR PO SCH (10:00)
[2017-10-26] MEDS ORDERED: CARVEDILOL 12.5 MG TABLET PO SCH (10:00)
[2017-10-26] MEDS ORDERED: AMLODIPINE BESYLATE 5 MG TABLET PO SCH (10:00)
[2017-10-26] MEDS: MEMANTINE HCL 10 MG TABLET PO SCH (10:31)
[2017-10-26] MEDS ORDERED: DULOXETINE HCL 30 MG CAPSULE.DR PO ONE (10:45)
[2017-10-26] MEDS: PREDNISONE 20 MG TABLET PO SCH (11:10)
[2017-10-26] MEDS: VANCOMYCIN HCL 1,000 MG in DEXTROSE 5%-WATER 250 ML IV SCH (11:44)
[2017-10-26] MEDS ORDERED: (PENDING PHARMACY ID) (Memantine Hcl [Namenda Xr] 14 MG) PO SCH (12:00)
--- NOTE | 2017-10-26 12:56 | PDOC PROGRESS REPORT ---
Subjective Progress Note for:: 10/26/17 Subjective:: I was notified by the nursing staff this morning that the patient's family wanted to speak to me. They are quite concerned that she has not been receiving all of her home medications. When I arrived in the room the patient herself is sitting in the chair. She is awake alert and oriented 3 and answers questions somewhat appropriately but it is quite clear that she is still significantly confused. At times she does not make sense in the family states that she is actually getting worse as the hospitalization goes on. I reviewed her home medication. The patient is on 24 different medications several of which could be causing altered mental status. They were especially concerned that she has not been receiving her medications for dementia. The patient herself states that she still feels short of breath. She states that she has some pain from her sciatic nerve and that she sometimes has nausea but has not had any since she came into the hospital. She is very scattered in her thought processes and a good review of systems could not be obtained. Reason For Visit: ALTERED MENTAL STATUS Physical Exam Vital Signs: Temp Pulse Resp BP Pulse Ox 98.7 F 78 18 171/70 H 95 10/26/17 08:05 10/26/17 12:18 10/26/17 12:18 10/26/17 08:05 10/26/17 12:18 Intake & Output 10/25/17 10/26/17 10/27/17 06:59 06:59 06:59 Intake Total 1200 2722 Output Total 1550 Balance 1200 1172 Weight 94.8 kg 93.9 kg General appearance: PRESENT: obese, well-developed, well-nourished - Hello Head exam: PRESENT: atraumatic, normocephalic Mouth exam: PRESENT: moist, tongue midline Neck exam: ABSENT: carotid bruit, JVD, lymphadenopathy, thyromegaly Respiratory exam: PRESENT: decreased breath sounds, wheezes, other - She is wheezing noted throughout all lung jefferson. She is diminished in the lower bases bilaterally Cardiovascular exam: PRESENT: RRR. ABSENT: diastolic murmur, rubs, systolic murmur Pulses: PRESENT: normal dorsalis pedis pul GI/Abdominal exam: PRESENT: normal bowel sounds, soft. ABSENT: distended, guarding, mass, organolmegaly, rebound, tenderness Rectal exam: PRESENT: deferred Extremities exam: PRESENT: full ROM. ABSENT: calf tenderness, clubbing, pedal edema Musculoskeletal exam: PRESENT: other - She is able to ambulate but is quite unsteady on her feet Neurological exam: PRESENT: alert, altered, awake, oriented to person, oriented to situation, other - She clearly is confused. ABSENT: oriented to time Psychiatric exam: PRESENT: appropriate affect, normal mood. ABSENT: homicidal ideation, suicidal ideation Skin exam: PRESENT: dry, intact, warm. ABSENT: cyanosis, rash Results Laboratory Results: 10/26/17 05:59 10/26/17 05:59 10/26/17 10/26/17 10/26/17 05:59 05:59 05:59 WBC 8.5 RBC 3.72 Hgb 11.0 L Hct 32.9 L MCV 88 MCH 29.5 MCHC 33.3 RDW 14.4 H Plt Count 354 Seg Neutrophils % Not Reportable Lymphocytes % Not Reportable Monocytes % Not Reportable Eosinophils % Not Reportable Basophils % Not Reportable Absolute Neutrophils Not Reportable Absolute Lymphocytes Not Reportable Absolute Monocytes Not Reportable Absolute Eosinophils Not Reportable Absolute Basophils Not Reportable Sodium 145.2 H Potassium 4.3 Chloride 102 Carbon Dioxide 32 H Anion Gap 11 BUN 23 H Creatinine 0.88 Est GFR ( Amer) > 60 Est GFR (Non-Af Amer) > 60 Glucose 216 H Calcium 9.5 Phosphorus 2.8 Magnesium 2.0 Ammonia Vitamin B12 > 1000.0 H TSH 0.59 10/26/17 10:35 WBC RBC Hgb Hct MCV MCH MCHC RDW Plt Count Seg Neutrophils % Lymphocytes % Monocytes % Eosinophils % Basophils % Absolute Neutrophils Absolute Lymphocytes Absolute Monocytes Absolute Eosinophils Absolute Basophils Sodium Potassium Chloride Carbon Dioxide Anion Gap BUN Creatinine Est GFR ( Amer) Est GFR (Non-Af Amer) Glucose Calcium Phosphorus Magnesium Ammonia < 8.7 L Vitamin B12 TSH Impressions: Chest/Abdomen CTA 10/24/17 00:00 IMPRESSION: Patchy consolidation in the lateral aspect of the left upper and lower lobes. Trace left pleural effusion.. NO PULMONARY EMBOLI. Head CT 10/24/17 00:00 IMPRESSION: No acute intracranial findings. Sinusitis. EVIDENCE OF ACUTE STROKE: No Chest X-Ray 10/24/17 15:17 IMPRESSION: Slightly worsening basilar aeration compared to yesterday. Assessment & Plan - Diagnosis (1) Acute encephalopathy Is this a current diagnosis for this admission?: Yes Plan: Likely multifactorial. Clearly she had sepsis and infection at the time of admission. Also I believe her encephalopathy is due to polypharmacy. Amongst her medications that she takes at home are Cymbalta, Aricept, tramadol, prednisone, oxybutynin, Lyrica as well as Namenda. This is in addition to multiple other medications. After long discussion with the family I am concerned that the patient's Aricept is contributing to her nausea she has been having at home. We are going to hold Aricept. She will continue to have as needed tramadol available as needed. I will start her back on her Cymbalta. We are holding off on oxybutynin. We will continue Namenda. Hopefully will see some improvement. The patient also has a history of getting confused when she is in the hospital due to her underlying dementia. (2) Sepsis Is this a current diagnosis for this admission?: Yes Plan: Present on admission secondary to underlying hernia. Resolving (3) Pneumonia Is this a current diagnosis for this admission?: Yes Plan: The patient is significantly immunosuppressed due to her treatment for rheumatoid arthritis. Concerns for gram negatives and MRSA. She will continue IV vancomycin and Zosyn. At this point she seems improved from the pneumonia standpoint I do not believe we need to add atypical coverage. (4) Acute and chronic respiratory failure Is this a current diagnosis for this admission?: Yes Plan: Secondary to pneumonia. She is back to her baseline intermittent oxygen use. (5) COPD with exacerbation Is this a current diagnosis for this admission?: Yes Plan: She has been on IV Solu-Medrol and the family thinks this could be agitating the patient. She has not been sleeping. I am going to change her over to 40 mg of p.o. prednisone today and we will start tapering as tolerated. (6) Diarrhea Is this a current diagnosis for this admission?: Yes Plan: Family reports that she has had 3-4 loose stools over the past 24 hours. I am concerned as she has been on antibiotic therapy in the setting of immunosuppression that she could be developing Clostridium difficile infection. We will test her stool today. (7) Rheumatoid arthritis Is this a current diagnosis for this admission?: Yes Plan: Her Arava and Xeljanz have been held. She also is on 3 mg of prednisone daily. All of this causes significant immunosuppression. Currently she is on prednisone for her COPD exacerbation. (8) Polypharmacy Is this a current diagnosis for this admission?: Yes Plan: The patient is on 24 medications on her home list. I have reviewed them with the family and they are quite adamant that she needs all of them. I have recommended that she not take Namenda and Aricept together. The family states that she has been quite nauseated at home. Aricept causes nausea and 30% of the patient's. I do believe that some of her encephalopathy and even perhaps her underlying issues with confusion that she has at home could be related to polypharmacy. I have asked them to sit down with her primary care provider when she gets out of the hospital and try to get rid of medications that she does not need. (9) Type 2 diabetes mellitus Qualifiers: Diabetes mellitus retirement insulin use: with retirement use Diabetes mellitus complication status: with unspecified complications Qualified Code(s) : E11.8 - Type 2 diabetes mellitus with unspecified complications; Z79.4 - joint terminal attack controller (current) use of insulin; Z79.4 - joint terminal attack controller (current) use of insulin; Z79.4 - joint terminal attack controller (current) use of insulin; Z79.4 - penitentiary (current) use of insulin Is this a current diagnosis for this admission?: Yes Plan: Continue Lantus with sliding scale Humalog (10) Anemia Is this a current diagnosis for this admission?: Yes Plan: She has a normocytic anemia consistent with chronic disease. (11) Obesity (BMI 30-39.9) Is this a current diagnosis for this admission?: Yes Plan: The patient has a BMI of 36.7. Dietary discretion is advised (12) Chronic pain syndrome Is this a current diagnosis for this admission?: Yes Plan: The family states the patient has issues with chronic neck and lower back pain as well as sciatica. I am concerned about the high doses of Lyrica that she is on and I am holding this here in the hospital. The patient is telling me that she is having significant pain however she appears to be quite comfortable and vital signs did not indicate that she is in acute pain at this point. She will continue to have as needed tramadol available. I am going to start her back on her Cymbalta. (13) Full code status Is this a current diagnosis for this admission?: Yes - Time Time Spent with patient: 35 or more minutes - Inpatient Certification Medical Necessity: Other - Inpatient hospitalization remains necessary. The patient is chronically immunosuppressed. She is requiring IV antibiotics for an underlying pneumonia. She is now developed diarrhea. She needs to be ruled out for Clostridium difficile infection. If she does well over the next 24 hours she possibly could be discharged home as she does seem to be feeling better. Certainly I believe her ongoing confusion is due to her medications.
[2017-10-26] MEDS ORDERED: ISOSORBIDE MONONITRATE 30 MG TAB.ER.24H PO ONE (13:15)
[2017-10-26] MEDS ORDERED: HYDRALAZINE HCL INJ/PF 20 MG/1 ML SDV IV ONE (13:15)
[2017-10-26] MEDS ORDERED: AMLODIPINE BESYLATE 5 MG TABLET PO ONE (13:15)
[2017-10-26] MEDS: NORMAL SALINE 1000 ML 1,000 ML IV PRN (13:22)
--- NOTE | 2017-10-26 16:32 | Progress Note ---
Provider Note Provider Note: ID Consult Note Asked to review patient's chart by Pharmacy. Pt not seen or examined. Reviewed VS, imaging, labs, notes. Ms. Bean is a 77 year old woman with PMH including Alzheimer's dementia, RA, CAD, COPD on 2 L home oxygen, and Type II DM who presented on 10/24/17 with fever and increased confusion. She complained of cough. She recently started taking azithromycin prescribed by her PMD for a diagnosis of acute sinusitis. On admission Temp was 100.9 F. Her physical exam was decreased breath sounds and some rhonchi on admission. CXR and CTA of the chest were performed. Patchy consolidation in the lateral aspect of the left upper and lower lobes was appreciated. Lactic acid level was normal. WBC count was normal. No fever since admission. Pt continues on 2 L O2. BCx are negative x 24h. No other microbiologic data is available. Impression/Recommendations Community acquired pneumonia in an immunosuppressed patient - Although GNRs, including Pseudomonas aeruginosa, may be more common in immunosuppressed community dwelling older adults, these pathogens still account for a very small percentage of CAP with an identified bacterial etiology. The patient has not had recent exposure to IV antibiotic therapy, which is a risk factor for more drug-resistant pathogens. MRSA is also an uncommon pathogen in CAP, outside of the setting of post-influenza pneumonia, which does not apply to the patient's case. The patient has not had recent hospitalizations at [facility]. She does not reside in a LTAC or SNF where she may be at risk for colonization with nosocomial pathogens. - No sputum culture is available. If she can produce sputum, sending it for culture would help guide therapy. Urine streptococcal antigen is a noninvasive test that, if available, may be helpful in identifying an etiology (sensitivity is in the 50-80% range). - Based on epidemiologic data, discontinuing vancomycin is reasonable due to the low likelihood of MRSA being involved. She can continue Zosyn alone, but it may be contributing to her diarrhea. Although she has COPD, she has not had frequent hospitalizations for pulmonary infections/COPD exacerbations, and she has no prior sputum cultures to suggest a particular need for antipseudomonal activity. As such, typical treatment for CAP with Rocephin/doxycycline may be reasonable. If she is switched to Rocephin/doxycycline and has any worsening, obtain sputum culture. Fili Becerra MD [facility] Infectious Diseases pager [phone]
[2017-10-26] MEDS ORDERED: LANSOPRAZOLE 30 MG TAB.RAP.DR PO SCH (18:00)
[2017-10-26] MEDS: CARVEDILOL 12.5 MG TABLET PO SCH (21:15)
[2017-10-26] MEDS: DULOXETINE HCL 30 MG CAPSULE.DR PO SCH (21:15)
[2017-10-26] MEDS: MONTELUKAST SODIUM 10 MG TABLET PO SCH (21:16)
[2017-10-26] MEDS ORDERED: TRAZODONE HCL 50 MG TABLET PO PRN (22:00)
[2017-10-26] MEDS ORDERED: HALOPERIDOL 2 MG TABLET PO SCH (22:00)
[2017-10-27] MEDS: IPRATROPIUM/ALBUTEROL 0.5-2.5 MG/3 ML AMPUL NEB SCH ×2 (01:12→09:22)
[2017-10-27 01:31] VITALS: BP 147/76
[2017-10-27] MEDS: LEVOTHYROXINE SODIUM 0.1 MG TABLET PO SCH (06:27)
[2017-10-27] MEDS: PIPERACILLIN SODIUM/TAZOBACTAM 3.375 GM in NORMAL SALINE 100 ML IV SCH (06:27)
[2017-10-27] MEDS: HEPARIN SOD (PORCINE) 5,000 UNIT/ML 1 ML SYRINGE SUBCUT SCH (06:27)
[2017-10-27 06:44] LABS: ABSOLUTE LYMPHOCYTES (AUTO) 0.8 10^3/uL (0.5-4.7); ABSOLUTE MONOCYTES (AUTO) 1.1 10^3/uL (0.1-1.4); ABSOLUTE NEUT (AUTO) 5.9 10^3/uL (1.7-8.2); BASOPHILS % (AUTO) 0.6 % (0-2); EOSINOPHILS % (AUTO) 0.5 % (0-6); HEMATOCRIT 32.8 % (36.0-47.0); HEMOGLOBIN 10.9 g/dL (12.0-15.5); LYMPHOCYTES % (AUTO) 10.8 % (13-45); MEAN CORPUSCULAR HEMOGLOBIN 29.1 pg (27.0-33.4); MEAN CORPUSCULAR HGB CONC 33.3 g/dL (32.0-36.0); MEAN CORPUSCULAR VOLUME 87 fl (80-97); MONOCYTES % (AUTO) 13.4 % (3-13); PLATELET COUNT 370 10^3/uL (150-450); RED BLOOD COUNT 3.76 10^6/uL (3.72-5.28); RED CELL DISTRIBUTION WIDTH 14.2 % (11.5-14.0); SEGMENTED NEUTROPHILS % (AUTO) 74.7 % (42-78); TOTAL CELLS COUNTED % (AUTO) 100 %; WHITE BLOOD COUNT 7.9 10^3/uL (4.0-10.5)
[2017-10-27 07:07] LABS: ANION GAP 10 (5-19); BLOOD UREA NITROGEN 19 mg/dL (7-20); CALCIUM 9.4 mg/dL (8.4-10.2); CARBON DIOXIDE 32 mmol/L (22-30); CHLORIDE 102 mmol/L (98-107); GLUCOSE 118 mg/dL (75-110); POTASSIUM 3.3 mmol/L (3.6-5.0); SODIUM 143.6 mmol/L (137-145)
[2017-10-27] MEDS ORDERED: POTASSIUM CHLORIDE 10 MEQ TABLET.SA PO ONE (08:41)
[2017-10-27] MEDS: CARVEDILOL 12.5 MG TABLET PO SCH (09:24)
[2017-10-27] MEDS: MEMANTINE HCL 10 MG TABLET PO SCH (09:25)
[2017-10-27] MEDS: SODIUM BICARBONATE 650 MG TABLET PO SCH (09:25)
[2017-10-27] MEDS: CHOLECALCIFEROL (D3) 1,000 UNIT TABLET PO SCH (09:25)
[2017-10-27] MEDS: FOLIC ACID 1 MG TABLET PO SCH (09:27)
[2017-10-27] MEDS: DULOXETINE HCL 30 MG CAPSULE.DR PO SCH (09:27)
[2017-10-27] MEDS: INSULIN GLARGINE,HUM.REC.ANLOG 300 UNIT/3 ML INSULN.PEN SUBCUT SCH (09:34)
[2017-10-27] MEDS: TRAMADOL HCL 50 MG TABLET PO PRN (09:40)
[2017-10-27] MEDS ORDERED: AMLODIPINE BESYLATE 10 MG TABLET PO SCH ×2 (10:00→11:00)
[2017-10-27] MEDS ORDERED: ISOSORBIDE MONONITRATE 30 MG TAB.ER.24H PO SCH (10:00)
[2017-10-27] MEDS ORDERED: AMLODIPINE BESYLATE 5 MG TABLET PO SCH (10:00)
[2017-10-27] MEDS: PREDNISONE 20 MG TABLET PO SCH (11:29)
[2017-10-27] MEDS ORDERED: FLUTICASONE NASAL SPRAY 50 MCG/SPRY 120 SPRAY/16 GM NAREB SCH (18:00)
[2017-10-27] MEDS ORDERED: (PENDING PHARMACY ID) (Irbesartan [Avapro] 300 MG) PO SCH (18:00)
== END 2017-10-27 12:54 | disposition home or self-care (01) | DRG 871 ==
LOC: ER 15:10 → EH 19:26 → 4S 23:25
PROVIDERS: ADMIT Internal Medicine Geriatric Medicine; ATTEND Internal Medicine Geriatric Medicine
DX: A41.9 Sepsis, unspecified organism (principal); J18.1 Lobar pneumonia, unspecified organism; J96.21 Acute and chronic respiratory failure with hypoxia; G92 Toxic encephalopathy; F05 Delirium due to known physiological condition; I11.0 Hypertensive heart disease with heart failure; I50.9 Heart failure, unspecified; E11.8 Type 2 diabetes mellitus with unspecified complications; T50.905A Adverse effect of unspecified drugs, medicaments and biological substances, initial encounter; E78.5 Hyperlipidemia, unspecified; K21.9 Gastro-esophageal reflux disease without esophagitis; D64.9 Anemia, unspecified; G89.4 Chronic pain syndrome; F03.90 Unspecified dementia, unspecified severity, without behavioral disturbance, psychotic disturbance, mood disturbance, and anxiety; M06.9 Rheumatoid arthritis, unspecified; I25.2 Old myocardial infarction; Z87.891 Personal history of nicotine dependence; Z79.4 Long term (current) use of insulin; Z79.51 Long term (current) use of inhaled steroids; Z79.52 Long term (current) use of systemic steroids; Z79.899 Other long term (current) drug therapy; Y92.9 Unspecified place or not applicable
CPT/HCPCS: 36415; 70450; 71045; 71275; 80048; 80053; 81001; 82140; 82550; 82607; 82803; 82962; 83605; 83735; 83880; 84100; 84443; 84484; 85025; 85027; 85610; 87040; 87086; 87493; 93005; 93010; 94640; 96365; 99291; J0360; J0696; J1644; J1815; J2185; J2543; J2550; J2920; J3370; J3490; J7030; J7060; J7512; J7620